=== PATIENT | male | born 1955 | race Caucasian/White ===

== ENCOUNTER 2024-04-10 20:41 | Inpatient (IN) | payer MEDICARE ==
[2024-04-10 21:26] LABS: Basophils # (A) 0.1 k/uL (0-0.2); Basophils % (A) 1 %; Eosinophils # (A) 0.2 k/uL (0-0.7); Eosinophils % (A) 2 %; HCT 44.4 % (39.0-53.0); HGB 14.4 gm/dL (13.0-17.5); Lymphocytes # (A) 2.4 k/uL (1.0-4.8); Lymphocytes % (A) 22 %; MCH 27.7 pg (25.0-35.0); MCHC 32.5 g/dL (31.0-37.0); MCV 85.1 fL (80.0-100.0); Mean Platelet Volume 9.8; Monocytes # (A) 0.6 k/uL (0-1.0); Monocytes % (A) 6 %; Neutrophils # (A) 7.6 k/uL (1.3-7.7); Neutrophils % (A) 69 %; Platelet Count 246 k/uL (150-450); RBC 5.22 m/uL (4.30-5.90); WBC 11.1 k/uL (3.8-10.6)
[2024-04-10 21:27] LABS: ALT 21 U/L (4-49); AST 21 U/L (17-59); African American GFR (CKD) >90 (>60 ml/min/1.73 sqM); Albumin 4.7 g/dL (3.5-5.0); Alkaline Phosphatase 104 U/L (38-126); Anion Gap 13 mmol/L; Blood Urea Nitrogen 18 mg/dL (9-20); Calcium 9.6 mg/dL (8.4-10.2); Carbon Dioxide 26 mmol/L (22-30); Chloride 100 mmol/L (98-107); Glucose 362 mg/dL (74-99); Non-African American GFR(CKD) >90 (>60 ml/min/1.73 sqM); Potassium 4.1 mmol/L (3.5-5.1); Sodium 139 mmol/L (137-145); Total Bilirubin 0.6 mg/dL (0.2-1.3); Total Protein 8.2 g/dL (6.3-8.2)
--- NOTE | 2024-04-10 21:51 | XR ---
EXAMINATION TYPE: XR foot complete RT DATE OF EXAM: 04/10/2024 9:21 PM COMPARISON: None. CLINICAL INDICATION: Male, 68 years old with history of Wound, pain TECHNIQUE: 3 view(s) obtained. FINDINGS: No acute fracture or dislocation. No cortical erosion evident. Joint spaces are preserved. Plantar ca lcaneal heel spur is present. Patient's known wound between fourth and fifth digit on the ball of the foot and at the heel are not readily apparent on the plain films. Follow up exams can be performed 7-10 days from acute trauma for continued pain IMPRESSION: 1. No acute osseous abnormality radiographically apparent [facility] Bobbi Kay, , 04/10/2024 9:49 PM
[2024-04-10] MEDS ORDERED: CLINDAMYCIN 600 MG in DEXTROSE 5% IN WATER 50 ML IVPB PRN (23:15)
[2024-04-10] MEDS ORDERED: ONDANSETRON 4 MG/2 ML VIAL IVP PRN (23:15)
[2024-04-10] MEDS ORDERED: NALOXONE 0.4 MG/ML 1 ML VIAL IV PRN (23:15)
--- NOTE | 2024-04-10 23:18 | ED ---
Lower Extremity Injury HPI - General Chief Complaint: Extremity Injury, Lower Stated Complaint: R Leg Infection Time Seen by Provider: 04/10/24 22:40 Source: patient, old records reviewed Mode of arrival: ambulatory Limitations: no limitations - History of Present Illness Initial Comments: This is a 68-year-old male to the ER for evaluation this patient presents today for evaluation of right foot pain diabetic foot ulcer of the right foot severe pain going on for days with significant swelling of the legs seen by primary care sent to ER for IV MD Complaint: ankle injury, foot injury -: hour(s) Injury: Foot: Right, Toes: Right Place: home Severity: moderate Severity scale (1-10): 6 Worsens With: nothing Context: fall Associated Symptoms: swelling, numbness, able to partially bear weight Treatments Prior to Arrival: other (0) - Related Data Previous Rx's Medication Instructions Recorded Amoxic-Pot Clav 875-125Mg 1 tab PO Q12HR 10 Days #20 tab 04/16/24 [Augmentin 875-125] Ciprofloxacin HCl [Cipro] 500 mg PO Q12HR 10 Days #20 tab 04/16/24 Insulin Detemir [Levemir Flexpen] 15 units SQ DAILY 30 Days #1 pen 04/16/24 Nicotine 14Mg/24Hr Patch [Habitrol] 1 patch TRANSDERM DAILY 30 Days 04/16/24 #30 patch amLODIPine [Norvasc] 5 mg PO DAILY 30 Days #30 tab 04/16/24 Allergies Allergy/AdvReac Type Severity Reaction Status Date / Time No Known Allergies Allergy Verified 04/11/24 11:32 Review of Systems ROS Statement: Those systems with pertinent positive or pertinent negative responses have been documented in the HPI. ROS Other: All systems not noted in ROS Statement are negative. Past Medical History Past Medical History: Diabetes Mellitus History of Any Multi-Drug Resistant Organisms: None Reported Past Surgical History: No Surgical Hx Reported Past Psychological History: No Psychological Hx Reported Smoking Status: Current every day smoker Past Alcohol Use History: None Reported Past Drug Use History: None Reported General Exam Limitations: no limitations General appearance: alert, in no apparent distress Head exam: Present: atraumatic, normocephalic, normal inspection Eye exam: Present: normal appearance, PERRL, EOMI. Absent: scleral icterus, conjunctival injection, periorbital swelling ENT exam: Present: normal exam, mucous membranes moist Neck exam: Present: normal inspection. Absent: tenderness, meningismus, lymphadenopathy Respiratory exam: Present: normal lung sounds bilaterally. Absent: respiratory distress, wheezes, rales, rhonchi, stridor Cardiovascular Exam: Present: regular rate, normal rhythm, normal heart sounds. Absent: systolic murmur, diastolic murmur, rubs, gallop, clicks GI/Abdominal exam: Present: soft, normal bowel sounds. Absent: distended, tend erness, guarding, rebound, rigid Extremities exam: Present: normal inspection, full ROM, normal capillary refill. Absent: tenderness, pedal edema, joint swelling, calf tenderness Back exam: Present: normal inspection Neurological exam: Present: alert, oriented X3, CN II-XII intact Psychiatric exam: Present: normal affect, normal mood Skin exam: Present: warm, dry, intact, normal color. Absent: rash Course Vital Signs 04/10/24 04/10/24 20:52 22:54 Temperature 98.8 F 98.2 F Pulse Rate 82 90 Respiratory 16 18 Rate Blood Pressure 171/83 175/83 O2 Sat by Pulse 97 97 Oximetry - Reevaluation(s) Reevaluation #1: 04/11/24 00:57 Medical records reviewed Reevaluation #2: 04/11/24 00:57 Patient symptoms unchanged Reevaluation #3: 04/11/24 00:57 Patient informed of results and questions answered Reevaluation #4: Was pt. sent in by a medical professional or institution (, PA, ART THERAPY SPECIALIST, urgent care, hospital, or [place] [facility] facility...) When possible be specific @ -no Did you speak to anyone other than the patient for history (EMS, parent, family, police, friend...)? What history was obtained from this source @ -no Did you review nursing and triage notes (agree or disagree)? Why? @ -agree Are old charts reviewed (outside hosp., previous admission, EMS record, old EKG, old radiological studies, urgent care reports/EKG's, [place] health [facility] facility records)? Report findings @ -yes Differential Diagnosis (chest pain, altered mental status, abdominal pain women, abdominal pain men, vaginal bleeding, weakness, fever, dyspnea, syncope, headache, dizziness, GI bleed, back pain, seizure, CVA, palpatations, mental health, musculoskeletal)? @ -prior EKG interpreted by me (3pts min.). @ -no X-rays interpreted by me (1pt min.). @ -yes negative for acute disease CT interpreted by me (1pt min.). @ -no U/S interpreted by me (1pt. min.). @ -no What testing was considered but not performed or refused? (CT, X-rays, U/S, labs)? Why? @ -none What meds were considered but not given or refused? Why? @ -none Did you discuss the management of the patient with other professionals (professionals i.e. DrRanjan, PA, ART THERAPY SPECIALIST, lab, RT, psych nurse, renal social worker, planning assistant, teacher, public service officer, case briefer)? Give summary @ -no Was smoking cessation discussed for >3mins.? @ -no Was critical care preformed (if so, how long)? @ -no Were there social determinants of health that impacted care today? How? (Homelessness, low income, unemployed, alcoholism, drug addiction, transportation, low edu. Level, literacy, decrease access to med. care, prison, rehab)? @ -none Was there de-escalation of care discussed even if they declined (Discuss DNR or withdrawal of care, Hospice)? DNR status @ -no What co-morbidities impacted this encounter? (DM, HTN, Smoking, COPD, CAD, Cancer, CVA, ARF, Chemo, Hep., AIDS, mental health diagnosis, sleep apnea, morbid obesity)? @ -none Was patient admitted / discharged? Hospital course, mention meds given and route, prescriptions, significant lab abnormalities, going to OR and other pertinent info. @ - 68 male to the ER for evaluation patient positive for evaluation of significant right foot ulcer and cellulitis Admitted Undiagnosed new problem with uncertain prognosis? @ -no Drug Therapy requiring intensive monitoring for toxicity (Heparin, Nitro, Insulin, Cardizem)? @ -no Were any procedures done? @ -no Diagnosis/symptom? @ -Foot ulcer with cellulitis Acute, or Chronic, or Acute on Chronic? @ -Acute Uncomplicated (without systemic symptoms) or Complicated (systemic symptoms)? @ -Complicated Side effects of treatment? @ -no Exacerbation, Progression, or Severe Exacerbation? @ -exacerbation Poses a threat to life or bodily function? How? (Chest pain, USA, AR, pneumonia, PE, COPD, DKA, ARF, appy, cholecystitis, CVA, Diverticulitis, Homicidal, Suicidal, threat to staff... and all critical care pts) @ -no - Consultations Consultation #1: Spoke with admitting physicians who agreed to admit this patient Medical Decision Making - Medical Decision Making 68 male to the ER for evaluation patient positive for evaluation of significant right foot ulcer and cellulitis - Lab Data Result diagrams: 04/16/24 04:15 04/16/24 04:15 Lab Results 04/10/24 04/10/24 04/11/24 Range/Units 21:09 21:09 06:38 WBC 11.1 H (3.8-10.6) k/uL RBC 5.22 (4.30-5.90) m/uL Hgb 14.4 (13.0-17.5) gm/dL Hct 44.4 (39.0-53.0) % MCV 85.1 (80.0-100.0) fL MCH 27.7 (25.0-35.0) pg MCHC 32.5 (31.0-37.0) g/dL RDW 13.0 (11.5-15.5) % Plt Count 246 (150-450) k/uL MPV 9.8 Neutrophils % 69 % Lymphocytes % 22 % Monocytes % 6 % Eosinophils % 2 % Basophils % 1 % Neutrophils # 7.6 (1.3-7.7) k/uL Lymphocytes # 2.4 (1.0-4.8) k/uL Monocytes # 0.6 (0-1.0) k/uL Eosinophils # 0.2 (0-0.7) k/uL Basophils # 0.1 (0-0.2) k/uL ESR (0-20) mm/Hr Sodium 139 (137-145) mmol/L Potassium 4.1 (3.5-5.1) mmol/L Chloride 100 (98-107) mmol/L Carbon Dioxide 26 (22-30) mmol/L Anion Gap 13 mmol/L BUN 18 (9-20) mg/dL Creatinine 0.78 (0.66-1.25) mg/dL Est GFR (CKD-EPI)AfAm >90 (>60 ml/min/1.73 sqM) Est GFR (CKD-EPI)NonAf >90 (>60 ml/min/1.73 sqM) Glucose 362 H (74-99) mg/dL POC Glucose (mg/dL) 221 H (70-110) mg/dL POC Glu Garden Worker ID Amanda Cortez [address] Glu mg/dL mg/dL Hemoglobin A1c (<=6.0) % Calcium 9.6 (8.4-10.2) mg/dL Phosphorus (2.5-4.5) mg/dL Magnesium (1.6-2.3) mg/dL Total Bilirubin 0.6 (0.2-1.3) mg/dL AST 21 (17-59) U/L ALT 21 (4-49) U/L Alkaline Phosphatase 104 (38-126) U/L C-Reactive Protein (<1.0) mg/dL Total Protein 8.2 (6.3-8.2) g/dL Albumin 4.7 (3.5-5.0) g/dL 04/11/24 04/11/24 04/11/24 Range/Units 06:48 06:48 11:53 WBC 10.8 H (3.8-10.6) k/uL RBC 4.97 (4.30-5.90) m/uL Hgb 13.2 (13.0-17.5) gm/dL Hct 41.7 (39.0-53.0) % MCV 83.8 (80.0-100.0) fL MCH 26.6 (25.0-35.0) pg MCHC 31.7 (31.0-37.0) g/dL RDW 12.8 (11.5-15.5) % Plt Count 234 (150-450) k/uL MPV 9.4 Neutrophils % 70 % Lymphocytes % 20 % Monocytes % 6 % Eosinophils % 2 % Basophils % 1 % Neutrophils # 7.5 (1.3-7.7) k/uL Lymphocytes # 2.2 (1.0-4.8) k/uL Monocytes # 0.7 (0-1.0) k/uL Eosinophils # 0.2 (0-0.7) k/uL Basophils # 0.1 (0-0.2) k/uL ESR 52 H (0-20) mm/Hr Sodium 137 (137-145) mmol/L Potassium 3.9 (3.5-5.1) mmol/L Chloride 102 (98-107) mmol/L Carbon Dioxide 25 (22-30) mmol/L Anion Gap 10 mmol/L BUN 12 (9-20) mg/dL Creatinine 0.64 L (0.66-1.25) mg/dL Est GFR (CKD-EPI)AfAm >90 (>60 ml/min/1.73 sqM) Est GFR (CKD-EPI)NonAf >90 (>60 ml/min/1.73 sqM) Glucose 213 H (74-99) mg/dL POC Glucose (mg/dL) 202 H (70-110) mg/dL POC Glu Garden Worker ID Rhys Cornejo [address] Glu mg/dL mg/dL Hemoglobin A1c (<=6.0) % Calcium 9.1 (8.4-10.2) mg/dL Phosphorus 3.6 (2.5-4.5) mg/dL Magnesium 1.6 (1.6-2.3) mg/dL Total Bilirubin 0.4 (0.2-1.3) mg/dL AST 18 (17-59) U/L ALT 17 (4-49) U/L Alkaline Phosphatase 90 (38-126) U/L C-Reactive Protein 1.6 H (<1.0) mg/dL Total Protein 6.8 (6.3-8.2) g/dL Albumin 3.9 (3.5-5.0) g/dL 04/11/24 04/11/24 04/12/24 Range/Units 16:32 19:33 05:56 WBC (3.8-10.6) k/uL RBC (4.30-5.90) m/uL Hgb (13.0-17.5) gm/dL Hct (39.0-53.0) % MCV (80.0-100.0) fL MCH (25.0-35.0) pg MCHC (31.0-37.0) g/dL RDW (11.5-15.5) % Plt Count (150-450) k/uL MPV Neutrophils % % Lymphocytes % % Monocytes % % Eosinophils % % Basophils % % Neutrophils # (1.3-7.7) k/uL Lymphocytes # (1.0-4.8) k/uL Monocytes # (0-1.0) k/uL Eosinophils # (0-0.7) k/uL Basophils # (0-0.2) k/uL ESR (0-20) mm/Hr Sodium (137-145) mmol/L Potassium (3.5-5.1) mmol/L Chloride (98-107) mmol/L Carbon Dioxide (22-30) mmol/L Anion Gap mmol/L BUN (9-20) mg/dL Creatinine (0.66-1.25) mg/dL Est GFR (CKD-EPI)AfAm (>60 ml/min/1.73 sqM) Est GFR (CKD-EPI)NonAf (>60 ml/min/1.73 sqM) Glucose (74-99) mg/dL POC Glucose (mg/dL) 220 H 180 H 178 H (70-110) mg/dL POC Glu Garden Worker ID Rhys Harley [address] Glu mg/dL mg/dL Hemoglobin A1c (<=6.0) % Calcium (8.4-10.2) mg/dL Phosphorus (2.5-4.5) mg/dL Magnesium (1.6-2.3) mg/dL Total Bilirubin (0.2-1.3) mg/dL AST (17-59) U/L ALT (4-49) U/L Alkaline Phosphatase (38-126) U/L C-Reactive Protein (<1.0) mg/dL Total Protein (6.3-8.2) g/dL Albumin (3.5-5.0) g/dL 04/12/24 04/12/24 04/12/24 Range/Units 07:12 07:12 07:12 WBC 11.0 H (3.8-10.6) k/uL RBC 4.88 (4.30-5.90) m/uL Hgb 13.4 (13.0-17.5) gm/dL Hct 40.9 (39.0-53.0) % MCV 83.8 (80.0-100.0) fL MCH 27.4 (25.0-35.0) pg MCHC 32.7 (31.0-37.0) g/dL RDW 12.6 (11.5-15.5) % Plt Count 207 (150-450) k/uL MPV 9.5 Neutrophils % % Lymphocytes % % Monocytes % % Eosinophils % % Basophils % % Neutrophils # (1.3-7.7) k/uL Lymphocytes # (1.0-4.8) k/uL Monocytes # (0-1.0) k/uL Eosinophils # (0-0.7) k/uL Basophils # (0-0.2) k/uL ESR (0-20) mm/Hr Sodium 136 L (137-145) mmol/L Potassium 4.1 (3.5-5.1) mmol/L Chloride 103 (98-107) mmol/L Carbon Dioxide 24 (22-30) mmol/L Anion Gap 9 mmol/L BUN 10 (9-20) mg/dL Creatinine 0.64 L (0.66-1.25) mg/dL Est GFR (CKD-EPI)AfAm >90 (>60 ml/min/1.73 sqM) Est GFR (CKD-EPI)NonAf >90 (>60 ml/min/1.73 sqM) Glucose 179 H (74-99) mg/dL POC Glucose (mg/dL) (70-110) mg/dL POC Glu Garden Worker ID Estimated Ave Glu mg/dL 338 mg/dL Hemoglobin A1c 13.4 H (<=6.0) % Calcium 8.9 (8.4-10.2) mg/dL Phosphorus (2.5-4.5) mg/dL Magnesium 1.7 (1.6-2.3) mg/dL Total Bilirubin 0.7 (0.2-1.3) mg/dL AST 17 (17-59) U/L ALT 17 (4-49) U/L Alkaline Phosphatase 85 (38-126) U/L C-Reactive Protein (<1.0) mg/dL Total Protein 6.5 (6.3-8.2) g/dL Albumin 3.6 (3.5-5.0) g/dL - Radiology Data Radiology results: report reviewed (X-ray right foot negative for acute dz), image reviewed Disposition Clinical Impression: Right foot ulcer, Cellulitis of right foot, Diabetic foot ulcer Disposition: ADMITTED IP TO THIS [facility] Condition: Stable Is patient prescribed a controlled substance at d/c from ED?: No Time of Disposition: 23:00
[2024-04-10] MEDS: HYDROmorphone 1 MG/ML 1 ML SYRINGE IVP STA (23:42)
[2024-04-10] MEDS: SODIUM CHLORIDE 0.9% 1,000 ML IV SCH (23:42)
[2024-04-11] MEDS: CLINDAMYCIN 600 MG in DEXTROSE 5% IN WATER 50 ML IVPB SCH (00:32)
[2024-04-11] MEDS ORDERED: DEXTROSE 50% SYRINGE 50 ML IVP PRN ×2 (01:04)
[2024-04-11] MEDS ORDERED: VANCOMYCIN IV PER PHARMACY 1 EACH MISC MISCELLANE PRN (06:17)
--- NOTE | 2024-04-11 06:20 | P.HPIM ---
History of Present Illness H&P Date: 04/11/24 Patient is a 68-year-old male with past medical history significant for uwh-gznyisr-miztlzgty diabetes mellitus presenting to the emergency department today for right foot erythema and wound between his fourth and fifth toes. He states that he is unsure of how he got the wound but that he has tried putting something like [place] on it as well as covering only with his socks with no relief. He states that he went to his primary care provider yesterday and they advised he come to the ER. He states that this has been going on for 3-4 weeks, never happened before. He states that a few months ago he dropped a heavy object on his left foot and thinks he has been putting more pressure on his rig ht foot to compensate for some pain and believes this may be where the wound started. He reports moderate pain, minimal swelling, erythema, and tenderness to palpation. He denies decreased sensation in his feet. He denies fever/chills, nausea/vomiting, lower extremity edema Initial vitals: BP 171/83, UT 82 bpm, RR 16, 97% on room air, 98.8F Initial labs: WBC 11.1, hemoglobin 14.4, platelets 246, sodium 139, potassium 4.1, chloride 100, BUN 18, creatinine 0.78, glucose 362 Initial foot x-ray: No acute osseous abnormality radiographically apparent ED documentation reviewed. Given ceftriaxone 2 g IVPB x 1, clindamycin 600 mg IVPB x 1 Review of Systems Pertinent positives and negatives as discussed in HPI, a complete review of systems was performed and all other systems are negative. Past Medical History Past Medical History: Diabetes Mellitus History of Any Multi-Drug Resistant Organisms: None Reported Past Surgical History: No Surgical Hx Reported Past Psychological History: No Psychological Hx Reported Smoking Status: Current every day smoker Past Alcohol Use History: None Reported Past Drug Use History: None Reported Medications and Allergies Allergies Allergy/AdvReac Type Severity Reaction Status Date / Time No Known Allergies Allergy Verified 04/10/24 20:55 Physical Exam Vitals: Vital Signs Temp Pulse Resp BP Pulse Ox 04/10/24 22:54 98.2 F 90 18 175/83 97 04/10/24 20:52 98.8 F 82 16 171/83 97 Intake and Output 04/10/24 04/10/24 04/11/24 14:59 22:59 06:59 Other: Weight 81.647 kg Vital signs reviewed General: Nontoxic, no distress, appears stated age, well-appearing Derm: Warm, dry, intact, no cyanosis Head: Atraumatic, normocephalic, symmetric Eyes: EOMI, anicteric sclera, PERRL Ears: Normal appearing, no external lesions, hearing intact Nose: Normal appearing, no external lesions Mouth: No lip lesion, mucus membranes moist, no tonsilar hypertrophy or exudate Neck: Supple, without lesions, trachea midline Cardiovascular: S1-S2 regular, no murmur, no pedal edema Lungs: CTA bilateral, no wheezes, no rhonchi, no rales, no accessory muscle use Abdominal: Soft, non-tender to palpation, bowel sounds present Extremities: Muscle strength 5/5 in all extremities, radial pulses 2+ bilateral, posterior tibial pulses 2+ bilateral; erythema on dorsal surface, no calor, dry wound between fourth and fifth toes, extremely tender to palpation Neuro: Alert, oriented x 4, gross neurological examination did not reveal any focal deficits. Cranial nerves II to XII grossly intact. Psych: Appropriate affect and mood Results CBC & Chem 7: 04/10/24 21:09 04/10/24 21:09 Labs: Abnormal Lab Results - Last 24 Hours (Table) 04/10/24 04/10/24 Range/Units 21:09 21:09 WBC 11.1 H (3.8-10.6) k/uL Glucose 362 H (74-99) mg/dL Thrombosis Risk Factor Assmnt - Choose All That Apply Each Factor Represents 1 point: Obesity (BMI >25) Each Risk Factor Represents 2 Points: Age 61-74 years Thrombosis Risk Factor Assessment Total Risk Factor Score: 3 Thrombosis Risk Factor Assessment Level: Moderate Risk Assessment and Plan Assessment: Patient is a 68-year-old male with past medical history significant for vwr-cgqhizp-kcbgrmdih diabetes mellitus admitted for cellulitis and ulcer of the right foot. Plan: Active #. Right fourth and fifth toe ulcer #. Cellulitis of the right foot #. Leukocytosis, secondary to above s/p one time dose of rocephine and clinda in the ED start on vancomycin dosing by pharma Consult wound management Pending blood cultures Monitor CBC Monitor CMP Consult infectious disease and foot miter operator check ESR and CRP foot x-ray: No acute osseous abnormality radiographically apparent #. Hyperglycemia #. Mou-bsbarqc-huqadtxxq diabetes mellitus Accu-Cheks ACHS Insulin sliding scale Monitor for hypoglycemia hypertension not currently on medication start lisinopril 5 mg po daily DVT prophylaxis: Lovenox 40 mg subcutaneous daily GI prophylaxis: None indicated at this time The patient is admitted with an anticipated less than 2 midnight stay for evaluation of cellulitis and ulcer of the right foot. CODE STATUS: Full Code Anticipated discharge place: Pending clinical course I have seen and evaluated the patient today. I Discussed the case with the resident and agree with the resident's findings I edited the assessment and plan as necessary as documented in the resident's note.
[2024-04-11 06:40] LABS: Glucose,Whole Blood 221 mg/dL (70-110)
[2024-04-11] MEDS: INSULIN ASPART (NovoLOG) 100 UNIT/ML VIAL SQ SCH (06:48)
[2024-04-11 07:26] LABS: Basophils # (A) 0.1 k/uL (0-0.2); Basophils % (A) 1 %; Eosinophils # (A) 0.2 k/uL (0-0.7); Eosinophils % (A) 2 %; HCT 41.7 % (39.0-53.0); HGB 13.2 gm/dL (13.0-17.5); Lymphocytes # (A) 2.2 k/uL (1.0-4.8); Lymphocytes % (A) 20 %; MCH 26.6 pg (25.0-35.0); MCHC 31.7 g/dL (31.0-37.0); MCV 83.8 fL (80.0-100.0); Mean Platelet Volume 9.4; Monocytes # (A) 0.7 k/uL (0-1.0); Monocytes % (A) 6 %; Neutrophils # (A) 7.5 k/uL (1.3-7.7); Neutrophils % (A) 70 %; Platelet Count 234 k/uL (150-450); RBC 4.97 m/uL (4.30-5.90); RDW 12.8 % (11.5-15.5); WBC 10.8 k/uL (3.8-10.6)
[2024-04-11 07:41] LABS: ALT 17 U/L (4-49); AST 18 U/L (17-59); African American GFR (CKD) >90 (>60 ml/min/1.73 sqM); Albumin 3.9 g/dL (3.5-5.0); Alkaline Phosphatase 90 U/L (38-126); Anion Gap 10 mmol/L; Blood Urea Nitrogen 12 mg/dL (9-20); C Reactive Protein 1.6 mg/dL (<1.0); Calcium 9.1 mg/dL (8.4-10.2); Carbon Dioxide 25 mmol/L (22-30); Chloride 102 mmol/L (98-107); Glucose 213 mg/dL (74-99); Magnesium 1.6 mg/dL (1.6-2.3); Non-African American GFR(CKD) >90 (>60 ml/min/1.73 sqM); Phosphorus 3.6 mg/dL (2.5-4.5); Potassium 3.9 mmol/L (3.5-5.1); Sodium 137 mmol/L (137-145); Total Bilirubin 0.4 mg/dL (0.2-1.3); Total Protein 6.8 g/dL (6.3-8.2)
[2024-04-11] MEDS: VANCOMYCIN 1,500 MG in SODIUM CHLORIDE 0.9% 500 ML 500 ML IVPB SCH (08:14)
[2024-04-11] MEDS: lisinopriL 5 MG TAB PO SCH (08:15)
[2024-04-11] MEDS: MORPHINE SULFATE 4 MG/ML SYRINGE IV PRN (08:27)
[2024-04-11] MEDS: HYDROcodone/APAP 5-325MG 1 EACH TAB PO PRN (10:26)
[2024-04-11 11:06] LABS: Erythrocyte Sedimentation Rate 52 mm/Hr (0-20)
[2024-04-11 11:56] LABS: Glucose,Whole Blood 202 mg/dL (70-110)
[2024-04-11] MEDS: AMPICILLIN-SULBACTAM 3 GM in SODIUM CHLORIDE 0.9% 100 ML IVPB SCH (13:32)
[2024-04-11 16:33] LABS: Glucose,Whole Blood 220 mg/dL (70-110)
[2024-04-11] MEDS ORDERED: ACETAMINOPHEN TAB 325 MG TAB PO PRN (17:27)
--- NOTE | 2024-04-11 17:33 | P.PN ---
Subjective Progress Note Date: 04/11/24 Hospital course: Patient is a very pleasant 68-year-old male with a past medical history of gfa-cqungox-qpmyzckbo diabetes mellitus nicotine dependence. He presented to the emergency department on 04/10/2024 secondary to evaluation of right foot pain and infection. Upon arrival to our facility, patient underwent evaluation in the emergency department. Vital signs upon arrival show blood pressure 171/83, heart rate 82, respiratory rate 16, temp 98.8 F, and SpO2 of 97% on room air. X-ray right foot completed negative for acute osseous abnormality. Labs completed and reviewed. CBC showing leukocytosis with WBC count of 11.1. BMP s howing hyperglycemia with glucose of 362. Liver profile unremarkable. Patient started on broad-spectrum antibiotics and admitted under our services with consult to infectious disease for infected diabetic wound. Physical exam: Vital signs reviewed and stable. General: Nontoxic, no distress and appears stated age. Derm: Skin warm and dry, normal coloration for ethnicity. Patient with open wound between fourth and fifth digit of right foot with surrounding erythema and edema. Head: Atraumatic, normocephalic and symmetric. Eyes: EOM's intact, no lid lag, and anicteric sclera Mouth: no lip lesions, mucus membranes moist Cardiovascular: regular rate and rhythm with normal S1S2, no murmur, positive posterior tibial pulses bilaterally, and cap refill < 2 seconds. Lungs: Respirations even, regular, and unlabored on room air. Lungs CTA bilaterally, no rhonchi, no rales, no wheezing, and no accessory muscle usage. Abdominal: soft, nontender to palpation, no guarding, no appreciable organomegaly Ext: ROM intact. No gross muscle atrophy, no edema, no contractures Neuro: Speech clear, face symmetrical and CN II-XII grossly intact with no noted focal neuro deficits Psych: Alert and oriented to person, place, time, and situation. Appropriate and pleasant affect. Assessment and Plan of Care: Infected diabetic wound right foot with surrounding cellulitis Type 2 diabetes mellitus with hyperglycemia -Infectious disease consulted, discussed plan of care with Dr. Lundberg. Rocephin to be discontinued and patient started on Unasyn in addition to vancomycin. -Continue IV antibiotics with vancomycin 1500 mg every 12 hours and Unasyn 3 g every 6 hours with close monitoring of renal function and vancomycin trough for any signs of vancomycin associated renal toxicity. -Follow-up on blood culture and wound culture. -ESR elevated at 52 and CRP of 1.6. -Symptomatic care and pain management with Tylenol 650 mg every 6 hours as needed for mild pain, [place] 5-325 mg tablets every 4 hours as needed for moderate pain, and morphine 4 mg IVP every 4 hours as needed for severe pain -Patient placed on glycemic protocol with NovoLog sliding scale. -Follow-up on hemoglobin A1c results. Hypertension -Patient has maintained persistent hypertension 160s to 170s systolic since admission. Will start patient on amlodipine 5 mg daily. Hypomagnesemia -Magnesium 1.6. Orders placed for magnesium sulfate 2 g IVPB x 1 dose. Will continue to monitor for improvement/resolution of hypomagnesemia with repeat a.m. labs. Nicotine dependence -Recommend smoking cessation. Orders placed for nicotine patch 14 mg daily. Data and imaging reviewed: -Vital signs reviewed. Blood pressure 165/74, heart rate 83, respiratory rate 17, temp 98.0 F, and SpO2 of 97% on room air. -Morning labs reviewed. CBC showing slight improvement of leukocytosis with WBC count of 10.8. ESR elevated at 52. BMP showing hyperglycemia with blood glucose of 213. Calcium 9.1. Magnesium slightly low at 1.6. Liver profile unremarkable. CRP elevated at 1.6. CODE STATUS: Full code DVT prophylaxis: Lovenox Discussed with: Patient, RN, and infectious disease Anticipated discharge date: Pending clinical course Anticipated discharge place: Home Patient was seen independently by Nurse Pracitioner. This document was prepared using [employer] dictation software. Please allow for errors in floor layer tile, while rare they do occur. Tru Osorio NP rendered care for this patient independently, reviewed the findings and plan as documented in the note above and agree with plan. I did not physically speak with or examine the patient on this date. Objective - Vital Signs Vital signs: Vital Signs Temp 98.2 F 04/11/24 00:29 Pulse 73 04/11/24 00:29 Resp 17 04/11/24 00:29 BP 161/73 04/11/24 00:29 Pulse Ox 96 04/11/24 00:29 FiO2 Intake & Output 04/10/24 04/11/24 04/11/24 18:59 06:59 18:59 Intake Total 540 Output Total 150 Balance 390 Weight 81.647 kg Intake: Oral 540 Output: Urine 150 Other: # Voids 1 - Labs CBC & Chem 7: 04/11/24 06:48 04/11/24 06:48 Labs: Abnormal Lab Results - Last 24 Hours (Table) 04/10/24 04/10/24 04/11/24 Range/Units 21:09 21:09 06:38 WBC 11.1 H (3.8-10.6) k/uL Creatinine (0.66-1.25) mg/dL Glucose 362 H (74-99) mg/dL POC Glucose (mg/dL) 221 H (70-110) mg/dL C-Reactive Protein (<1.0) mg/dL 04/11/24 04/11/24 Range/Units 06:48 06:48 WBC 10.8 H (3.8-10.6) k/uL Creatinine 0.64 L (0.66-1.25) mg/dL Glucose 213 H (74-99) mg/dL POC Glucose (mg/dL) (70-110) mg/dL C-Reactive Protein 1.6 H (<1.0) mg/dL
[2024-04-11] MEDS: amLODIPine 5 MG TAB PO STA (17:49)
[2024-04-11] MEDS: MAGNESIUM SULFATE-D5W PMX 1 GM in DEXTROSE/WATER 1 100ML.BAG IVPB SCH (17:49)
[2024-04-11] MEDS: NICOTINE 14MG/24HR PATCH TRANSDERM SCH (17:50)
[2024-04-11 19:34] LABS: Glucose,Whole Blood 180 mg/dL (70-110)
[2024-04-12 05:58] LABS: Glucose,Whole Blood 178 mg/dL (70-110)
[2024-04-12 07:34] LABS: HCT 40.9 % (39.0-53.0); HGB 13.4 gm/dL (13.0-17.5); MCH 27.4 pg (25.0-35.0); MCHC 32.7 g/dL (31.0-37.0); MCV 83.8 fL (80.0-100.0); Mean Platelet Volume 9.5; Platelet Count 207 k/uL (150-450); RBC 4.88 m/uL (4.30-5.90); RDW 12.6 % (11.5-15.5)
[2024-04-12 08:02] LABS: ALT 17 U/L (4-49); AST 17 U/L (17-59); African American GFR (CKD) >90 (>60 ml/min/1.73 sqM); Albumin 3.6 g/dL (3.5-5.0); Alkaline Phosphatase 85 U/L (38-126); Anion Gap 9 mmol/L; Blood Urea Nitrogen 10 mg/dL (9-20); Calcium 8.9 mg/dL (8.4-10.2); Carbon Dioxide 24 mmol/L (22-30); Chloride 103 mmol/L (98-107); Glucose 179 mg/dL (74-99); Magnesium 1.7 mg/dL (1.6-2.3); Non-African American GFR(CKD) >90 (>60 ml/min/1.73 sqM); Potassium 4.1 mmol/L (3.5-5.1); Sodium 136 mmol/L (137-145); Total Bilirubin 0.7 mg/dL (0.2-1.3); Total Protein 6.5 g/dL (6.3-8.2)
--- NOTE | 2024-04-12 08:12 | P.CONS ---
History of Present Illness - Reason for Consult Consult date: 04/11/24 Right foot cellulitis Requesting physician: Stacie Nuno - Chief Complaint Right foot pain swelling redness x days - History of Present Illness Patient is a 68-year-old male with a past medical history significant for diabetes mellitus and hypertension current everyday smoker presenting to the hospital for evaluation of right foot pain swelling and redness that the pain has been going on for the last few days patient also developed a wound between his right fourth and fifth toe for the same duration patient not very clear how it started mention he went to see his primary care physician who sent the patient to the hospital patient mention he did drop heavy object on his left foot and has been favoring his left foot and using more weight on the right foot adequately to the bottom patient describing the pain to be sharp moderate intense without radiation with associated swelling redness denies any possibly drainage denies high-grade fever or any chills with the symptoms the patient has been evaluated on presentation to the hospital patient was afebrile no fever have recorded subsequently patient was not tachycardic hypotensive or hypoxic and no need for supplemental oxygen patient did have a white count of 11.1 creatinine 0.64 electrolyte has been normal liver enzymes are normal blood cultures obtained which are currently pending patient did have x-ray of the foot no acute bony abnormality patient was started on vancomycin infectious disease was consulted for further management of antibiotic therapy Review of Systems Positive point and negatives has been mentioned in the HPI, complete review of systems was performed and all other systems are negative Past Medical History Past Medical History: Diabetes Mellitus, Hypertension History of Any Multi-Drug Resistant Organisms: None Reported Past Surgical History: No Surgical Hx Reported Past Psychological History: No Psychological Hx Reported Smoking Status: Current every day smoker Past Alcohol Use History: None Reported Past Drug Use History: None Reported Medications and Allergies Home Medications Medication Instructions Recorded Confirmed Type Unable To Assess [Unable to Assess] 04/11/24 04/11/24 History Allergies Allergy/AdvReac Type Severity Reaction Status Date / Time No Known Allergies Allergy Verified 04/11/24 11:32 Physical Exam Vitals: Vital Signs Temp Pulse Pulse Resp BP BP Pulse Ox 04/11/24 07:00 98.0 F 83 17 165/74 97 04/11/24 00:29 98.2 F 73 17 161/73 96 04/10/24 22:54 98.2 F 90 18 175/83 97 04/10/24 20:52 98.8 F 82 16 171/83 97 Intake and Output 04/10/24 04/11/24 04/11/24 22:59 06:59 14:59 Intake Total 540 Output Total 150 Balance 390 Intake: Oral 540 Output: Urine 150 Other: # Voids 1 Weight 81.647 kg GENERAL DESCRIPTION: Elderly male up in bed, no distress. No tachypnea or ac cessory muscle of respiration use. HEENT: Shows Pallor , no scleral icterus. Oral mucous membrane is dry. No pharyngeal erythema or thrush NECK: Trachea central, no thyromegaly. LUNGS: Unlabored breathing. Clear to auscultation anteriorly. No wheeze or crackle. HEART: S1, S2, regular rate and rhythm. No loud murmur ABDOMEN: Soft, no tenderness , guarding or rigidity, no organomegaly EXTREMITIES: Right foot did have a wound between the fourth and the fifth toe with associated swelling redness and warmth on the dorsum aspect of the right foot SKIN: No rash, no masses palpable. NEUROLOGICAL: The patient is awake, alert, oriented x3, mood and affect normal. Results CBC & Chem 7: 04/12/24 07:12 04/12/24 07:12 Labs: Abnormal Lab Results - Last 24 Hours (Table) 04/10/24 04/10/24 04/11/24 Range/Units 21:09 21:09 06:38 WBC 11.1 H (3.8-10.6) k/uL Creatinine (0.66-1.25) mg/dL Glucose 362 H (74-99) mg/dL POC Glucose (mg/dL) 221 H (70-110) mg/dL C-Reactive Protein (<1.0) mg/dL 04/11/24 04/11/24 Range/Units 06:48 06:48 WBC 10.8 H (3.8-10.6) k/uL Creatinine 0.64 L (0.66-1.25) mg/dL Glucose 213 H (74-99) mg/dL POC Glucose (mg/dL) (70-110) mg/dL C-Reactive Protein 1.6 H (<1.0) mg/dL Assessment and Plan (1) Diabetic foot infection Current Visit: Yes Status: Acute Code(s): E11.628 - TYPE 2 DIABETES MELLITUS WITH OTHER SKIN COMPLICATIONS; L08.9 - LOCAL INFECTION OF THE SKIN AND SUBCUTANEOUS TISSUE, UNSP SNOMED Code(s): 644157288 (2) Cellulitis of right foot Current Visit: Yes Status: Acute Code(s): L03.115 - CELLULITIS OF RIGHT LOWER LIMB SNOMED Code(s): 40214340184525176 (3) Diabetic foot ulcer Current Visit: Yes Status: Acute Code(s): E11.621 - TYPE 2 DIABETES MELLITUS WITH FOOT ULCER; L97.509 - NON-PRESSURE CHRONIC ULCER OTH PRT UNSP FOOT W UNSP SEVERITY SNOMED Code(s): 321013205 Plan: 1patient was in the hospital increasing pain swelling redness to the right foot with evidence of cellulitis source is likely wound between the right fourth and fifth toe and no need to cover for the polymicrobial joy associated with diabetic foot infection. 2we will discontinue clindamycin and start the patient Unasyn 3 g every 6 hours and continue with vancomycin while waiting for the culture to finalize Question concern answered We will follow on clinical condition and cultures to further adjust medication if needed Thank you for this consultation we will follow the patient along with you Dictation was produced using Yapmo dictation software. please excuse any grammatical, word or spelling errors. Time with Patient: Greater than 30
[2024-04-12] MEDS: amLODIPine 5 MG TAB PO SCH (08:22)
[2024-04-12] MEDS: ENOXAPARIN 40 MG/0.4 ML SYRINGE SQ SCH (08:22)
[2024-04-12] MEDS: MAGNESIUM SULFATE-D5W PMX 1 GM in DEXTROSE/WATER 1 100ML.BAG IVPB SCH (09:21)
[2024-04-12] MEDS: VANCOMYCIN 1,500 MG in SODIUM CHLORIDE 0.9% 500 ML 500 ML IVPB SCH (09:22)
[2024-04-12 11:50] LABS: Glucose,Whole Blood 240 mg/dL (70-110)
--- NOTE | 2024-04-12 16:41 | P.PN ---
Subjective Progress Note Date: 04/12/24 Hospital course: Patient is a very pleasant 68-year-old male with a past medical history of [id number] diabetes mellitus, and nicotine dependence. He presented to the emergency department on 04/10/2024 secondary to evaluation of right foot pain and infection. Upon arrival to our facility, patient underwent evaluation in the emergency department. Vital signs upon arrival show blood pressure 171/83, heart rate 82, respiratory rate 16, temp 98.8 F, and SpO2 of 97% on room air. X-ray right foot completed negative for acute osseous abnormality. Labs completed and reviewed. CBC showing leukocytosis with WBC count of 11.1. BMP showing hyperglycemia with glucose of 362. Liver profile unremarkable. Patient started on broad-spectrum antibiotics and admitted under our services with consult to infectious disease for infected diabetic wound. Blood cultures showing no growth to date. Wound culture preliminarily positive for Enterobacter aerogenes and Proteus [place]ellas. Physical exam: Patient seen and fully evaluated at bedside this morning. He reports pain remains in his right foot but does improve with current pain medication regimen. He denies having any other complaints or needs at this time. Vital signs reviewed and stable. General: Nontoxic, no distress and appears stated age. Derm: Skin warm and dry, normal coloration for ethnicity. Patient with open wound between fourth and fifth digit of right foot with surrounding erythema and edema. Head: Atraumatic, normocephalic and symmetric. Eyes: EOM's intact, no lid lag, and anicteric sclera Mouth: no lip lesions, mucus membranes moist Cardiovascular: regular rate and rhythm with normal S1S2, no murmur, positive posterior tibial pulses bilaterally, and cap refill < 2 seconds. Lungs: Respirations even, regular, and unlabored on room air. Lungs CTA bilaterally, no rhonchi, no rales, no wheezing, and no accessory muscle usage. Abdominal: soft, nontender to palpation, no guarding, no appreciable organomegaly Ext: ROM intact. No gross muscle atrophy, no edema, no contractures Neuro: Speech clear, face symmetrical and CN II-XII grossly intact with no noted focal neuro deficits Psych: Alert and oriented to person, place, time, and situation. Appropriate and pleasant affect. Assessment and Plan of Care: Infected diabetic wound right foot with surrounding cellulitis Type 2 diabetes mellitus with hyperglycemia, hemoglobin A1c 13.4%. Leukocytosis -Infectious disease following, discussed plan of care with Dr. Lundberg. -Blood cultures showing no growth to date. Wound culture preliminarily positive for Enterobacter aerogenes and Proteus [place]ellas. -Continue IV antibiotics with vancomycin 1500 mg every 12 hours and Unasyn 3 g every 6 hours with close monitoring of renal function and vancomycin trough for any signs of vancomycin associated renal toxicity. -Follow-up on blood culture and wound culture. -ESR elevated at 52 and CRP of 1.6. -Symptomatic care and pain management with Tylenol 650 mg every 6 hours as needed for mild pain, Polson 5-325 mg tablets every 4 hours as needed for moderate pain, and morphine 4 mg IVP every 4 hours as needed for severe pain -Patient placed on glycemic protocol with NovoLog sliding scale. -Follow-up on hemoglobin A1c results. Hypertension -Patient has maintained persistent hypertension 160s to 170s systolic since admission. Will start patient on amlodipine 5 mg daily. Hypomagnesemia -Magnesium 1.7. Orders placed for magnesium sulfate 2 g IVPB x 1 dose. Will continue to monitor for improvement/resolution of hypomagnesemia with repeat a.m. labs. Nicotine dependence -Recommend smoking cessation. Orders placed for nicotine patch 14 mg daily. Data and imaging reviewed: -Labs reviewed. Blood cultures showing no growth to date. Wound culture preliminarily positive for Enterobacter aerogenes and Proteus Mirabellas. Morning labs reviewed. CBC showing leukocytosis with WBC count of 11.0. BMP showing sodium 136 and glucose of 179. Hemoglobin A1c significantly elevated at 13.4%. Magnesium slightly low at 1.7 and liver profile unremarkable. -Vital signs reviewed. Blood pressure 144/71, heart rate 80, respiratory rate 17, temp 97.2 F, and SpO2 of 97% on room air. CODE STATUS: Full code DVT prophylaxis: Lovenox Discussed with: Patient, RN, and infectious disease Anticipated discharge date: Pending clinical course Anticipated discharge place: Home Patient was seen independently by Nurse Pracitioner. This document was prepared using Fluxome dictation software. Please allow for errors in highway safety engineer, while rare they do occur. Tru Osorio NP rendered care for this patient independently, reviewed the findings and plan as documented in the note above and agree with plan. I did not physically speak with or examine the patient on this date. Objective - Vital Signs Vital signs: Vital Signs Temp 97.2 F L 02/19/25 07:00 Pulse 80 04/12/24 07:00 Resp 17 04/12/24 07:00 BP 144/71 04/12/24 07:00 Pulse Ox 97 04/12/24 07:00 FiO2 Intake & Output 04/11/24 04/12/24 04/12/24 18:59 06:59 18:59 Intake Total 1450 550 Balance 1450 550 Intake: Intake, IV Titration 750 Amount Ampicillin-Sulbactam 3 gm 200 In Sodium Chloride 0.9% 100 ml @ 200 mls/hr IVPB Q6H [facility] Rx#:[id number] Vancomycin 1,500 mg In 500 Sodium Chloride 0.9% 500 ml 500 ml @ 167 mls/hr IVPB Q12H [facility] Rx#: [id number] cefTRIAXone 2 gm In 50 Sodium Chloride 0.9% 50 ml @ 100 mls/hr IVPB Q24HR [facility] Rx#:[id number] Oral 700 550 Other: # Voids 3 2 # Bowel Movements 0 0 - Labs CBC & Chem 7: 04/12/24 07:12 04/12/24 07:12 Labs: Abnormal Lab Results - Last 24 Hours (Table) 04/11/24 04/11/24 04/11/24 Range/Units 06:48 11:53 16:32 WBC (3.8-10.6) k/uL ESR 52 H (0-20) mm/Hr Sodium (137-145) mmol/L Creatinine (0.66-1.25) mg/dL Glucose (74-99) mg/dL POC Glucose (mg/dL) 202 H 220 H (70-110) mg/dL 04/11/24 04/12/24 04/12/24 Range/Units 19:33 05:56 07:12 WBC (3.8-10.6) k/uL ESR (0-20) mm/Hr Sodium 136 L (137-145) mmol/L Creatinine 0.64 L (0.66-1.25) mg/dL Glucose 179 H (74-99) mg/dL POC Glucose (mg/dL) 180 H 178 H (70-110) mg/dL 04/12/24 Range/Units 07:12 WBC 11.0 H (3.8-10.6) k/uL ESR (0-20) mm/Hr Sodium (137-145) mmol/L Creatinine (0.66-1.25) mg/dL Glucose (74-99) mg/dL POC Glucose (mg/dL) (70-110) mg/dL Microbiology - Last 24 Hours (Table) 04/11/24 16:33 Gram Stain - Preliminary Foot - Right 04/10/24 21:09 Blood Culture - Preliminary Blood
[2024-04-12 17:00] LABS: Glucose,Whole Blood 227 mg/dL (70-110)
[2024-04-12 20:19] LABS: Glucose,Whole Blood 213 mg/dL (70-110)
[2024-04-13] MEDS: CEFEPIME 2 GM in SODIUM CHLORIDE 0.9% 100 ML IVPB SCH (00:24)
[2024-04-13 04:25] LABS: HCT 35.7 % (39.0-53.0); HGB 11.7 gm/dL (13.0-17.5); MCH 27.9 pg (25.0-35.0); MCHC 32.7 g/dL (31.0-37.0); MCV 85.3 fL (80.0-100.0); Mean Platelet Volume 9.1; Platelet Count 199 k/uL (150-450); RBC 4.18 m/uL (4.30-5.90); RDW 12.4 % (11.5-15.5); WBC 10.3 k/uL (3.8-10.6)
[2024-04-13 04:47] LABS: African American GFR (CKD) >90 (>60 ml/min/1.73 sqM); Anion Gap 7 mmol/L; Blood Urea Nitrogen 13 mg/dL (9-20); Calcium 8.6 mg/dL (8.4-10.2); Carbon Dioxide 24 mmol/L (22-30); Chloride 106 mmol/L (98-107); Glucose 155 mg/dL (74-99); Magnesium 1.8 mg/dL (1.6-2.3); Non-African American GFR(CKD) >90 (>60 ml/min/1.73 sqM); Potassium 4.4 mmol/L (3.5-5.1); Sodium 137 mmol/L (137-145)
[2024-04-13 06:04] LABS: Glucose,Whole Blood 186 mg/dL (70-110)
[2024-04-13 07:19] LABS: Glucose,Whole Blood 196 mg/dL (70-110)
--- NOTE | 2024-04-13 08:03 | P.PN ---
Subjective Progress Note Date: 04/12/24 Principal diagnosis: Reason for follow-up is right diabetic foot ulcer and cellulitis Patient is a 68-year-old male with a past medical history significant for diabetes mellitus and hypertension current everyday smoker presenting to the hospital for evaluation of right foot pain swelling and redness, patient be diagnosed with right diabetic foot ulcer and cellulitis prompted this consultation. On today's evaluation that is 04/12/2024,the patient denies any fever or any chills, patient is breathing comfortably on room air, the patient denies chest pain shortness of breath and no significant cough, patient denies abdominal pain, no nausea vomiting or diarrhea. Pain to the right foot slightly decreased in intensity. Patient white count is 11,000 creatinine 0.64 culture growing mostly gram- negative Objective - Vital Signs Vital signs: Vital Signs Temp 98.1 F 04/12/24 19:39 Pulse 80 04/12/24 19:39 Resp 18 04/12/24 19:39 BP 147/67 04/12/24 19:39 Pulse Ox 98 04/12/24 19:39 FiO2 Intake & Output 04/12/24 04/12/24 04/13/24 06:59 18:59 06:59 Intake Total 550 1400 Balance 550 1400 Weight 81.647 kg Intake: Intake, IV Titration 800 Amount Ampicillin-Sulbactam 3 gm 100 In Sodium Chloride 0.9% 100 ml @ 200 mls/hr IVPB Q6H [facility] Rx#:[id number] Magnesium Sulfate-D5w Pmx 200 1 gm In Dextrose/Water 1 100ml.bag @ 100 mls/hr IVPB Q1H [facility] Rx#: [id number] Vancomycin 1,500 mg In 500 Sodium Chloride 0.9% 500 ml 500 ml @ 167 mls/hr IVPB Q12H [facility] Rx#: [id number] Oral 550 600 Other: # Voids 2 2 # Bowel Movements 0 0 - Exam GENERAL DESCRIPTION: An elderly male lying in bed in no distress RESPIRATORY SYSTEM: Unlabored breathing , decreased breath sounds at bases HEART: S1 S2 regular rate and rhythm , ABDOMEN: Soft , no tenderness EXTREMITIES: Right foot swelling redness slightly decreased - Labs CBC & Chem 7: 04/13/24 02:48 04/13/24 02:48 Labs: Abnormal Lab Results - Last 24 Hours (Table) 04/12/24 04/12/24 04/12/24 Range/Units 05:56 07:12 07:12 WBC (3.8-10.6) k/uL Sodium 136 L (137-145) mmol/L Creatinine 0.64 L (0.66-1.25) mg/dL Glucose 179 H (74-99) mg/dL POC Glucose (mg/dL) 178 H (70-110) mg/dL Hemoglobin A1c 13.4 H (<=6.0) % 04/12/24 04/12/24 04/12/24 Range/Units 07:12 11:48 16:58 WBC 11.0 H (3.8-10.6) k/uL Sodium (137-145) mmol/L Creatinine (0.66-1.25) mg/dL Glucose (74-99) mg/dL POC Glucose (mg/dL) 240 H 227 H (70-110) mg/dL Hemoglobin A1c (<=6.0) % 04/12/24 Range/Units 20:17 WBC (3.8-10.6) k/uL Sodium (137-145) mmol/L Creatinine (0.66-1.25) mg/dL Glucose (74-99) mg/dL POC Glucose (mg/dL) 213 H (70-110) mg/dL Hemoglobin A1c (<=6.0) % Microbiology - Last 24 Hours (Table) 04/11/24 16:33 Gram Stain - Preliminary Foot - Right Wound Culture - Preliminary Enterobacter aerogenes Proteus mirabilis 04/10/24 21:09 Blood Culture - Preliminary Blood Assessment and Plan (1) Diabetic foot infection Current Visit: Yes Status: Acute Code(s): E11.628 - TYPE 2 DIABETES MELLITUS WITH OTHER SKIN COMPLICATIONS; L08.9 - LOCAL INFECTION OF THE SKIN AND SUBCUTANEOUS TISSUE, UNSP SNOMED Code(s): 522551273 (2) Cellulitis of right foot Current Visit: Yes Status: Acute Code(s): L03.115 - CELLULITIS OF RIGHT LOWER LIMB SNOMED Code(s): 95734290174048234 (3) Diabetic foot ulcer Current Visit: Yes Status: Acute Code(s): E11.621 - TYPE 2 DIABETES MELLITUS WITH FOOT ULCER; L97.509 - NON-PRESSURE CHRONIC ULCER OTH PRT UNSP FOOT W UNSP SEVERITY SNOMED Code(s): 442786018 Plan: 1patient was in the hospital increasing pain swelling redness to the right foot with evidence of cellulitis source is likely wound between the right fourth and fifth toe and no need to cover for the polymicrobial joy associated with diabetic foot infection. 2patient white count is slightly up today and cultures are growing predominantly gram-negative we will discontinue Unasyn and start the patient on cefepime while waiting for the sensitivity to finalize if no gram-positive vancomycin will be discontinued in a.m. Dictation was produced using Xirrus dictation software. please excuse any grammatical, word or spelling errors. Time with Patient: Less than 30
[2024-04-13] MEDS: VANCOMYCIN TROUGH DUE 1 EACH MISC MISCELLANE ONE (09:52)
[2024-04-13 11:48] LABS: Glucose,Whole Blood 223 mg/dL (70-110)
--- NOTE | 2024-04-13 13:07 | P.PN ---
Subjective Progress Note Date: 04/13/24 Principal diagnosis: Reason for follow-up is right diabetic foot ulcer and cellulitis Patient is a 68-year-old male with a past medical history significant for diabetes mellitus and hypertension current everyday smoker presenting to the hospital for evaluation of right foot pain swelling and redness, patient be diagnosed with right diabetic foot ulcer and cellulitis prompted this consultation. On today's evaluation that is 04/13/2024,the patient remains to be afebrile, patient is on room air not requiring supplemental oxygen and denies any shortness of breath no chest pain or cough.Patient denies having any nausea or vomiting, no abdominal pain and no diarrhea, pain to the right foot has decreased in intensity. Patient white count normalized to 10.3, creatinine 0.70 Vanco trough low at 11.3 culture with Enterobacter and Proteus Objective - Vital Signs Vital signs: Vital Signs Temp 98.6 F 04/13/24 07:18 Pulse 69 04/13/24 07:18 Resp 16 04/13/24 07:18 BP 155/80 04/13/24 07:18 Pulse Ox 96 04/13/24 07:18 FiO2 Intake & Output 04/12/24 04/13/24 04/13/24 18:59 06:59 18:59 Intake Total 1400 250 Balance 1400 250 Weight 81.647 kg Intake: Intake, IV Titration 800 Amount Ampicillin-Sulbactam 3 gm 100 In Sodium Chloride 0.9% 100 ml @ 200 mls/hr IVPB Q6H [facility] Rx#:[id number] Magnesium Sulfate-D5w Pmx 200 1 gm In Dextrose/Water 1 100ml.bag @ 100 mls/hr IVPB Q1H [facility] Rx#: [id number] Vancomycin 1,500 mg In 500 Sodium Chloride 0.9% 500 ml 500 ml @ 167 mls/hr IVPB Q12H [facility] Rx#: [id number] Oral 600 250 Other: # Voids 2 2 # Bowel Movements 0 0 - Exam GENERAL DESCRIPTION: An elderly male lying in bed in no distress RESPIRATORY SYSTEM: Unlabored breathing , decreased breath sounds at bases HEART: S1 S2 regular rate and rhythm , ABDOMEN: Soft , no tenderness EXTREMITIES: Right foot swelling redness slightly decreased - Labs CBC & Chem 7: 04/13/24 02:48 04/13/24 02:48 Labs: Abnormal Lab Results - Last 24 Hours (Table) 04/12/24 04/12/24 04/13/24 Range/Units 16:58 20:17 02:48 RBC 4.18 L (4.30-5.90) m/uL Hgb 11.7 L (13.0-17.5) gm/dL Hct 35.7 L (39.0-53.0) % Glucose (74-99) mg/dL POC Glucose (mg/dL) 227 H 213 H (70-110) mg/dL 04/13/24 04/13/24 04/13/24 Range/Units 02:48 06:03 07:18 RBC (4.30-5.90) m/uL Hgb (13.0-17.5) gm/dL Hct (39.0-53.0) % Glucose 155 H (74-99) mg/dL POC Glucose (mg/dL) 186 H 196 H (70-110) mg/dL 04/13/24 Range/Units 11:46 RBC (4.30-5.90) m/uL Hgb (13.0-17.5) gm/dL Hct (39.0-53.0) % Glucose (74-99) mg/dL POC Glucose (mg/dL) 223 H (70-110) mg/dL Microbiology - Last 24 Hours (Table) 04/11/24 16:33 Gram Stain - Preliminary Foot - Right Wound Culture - Preliminary Enterobacter aerogenes Proteus mirabilis 04/10/24 21:09 Blood Culture - Preliminary Blood Assessment and Plan (1) Diabetic foot infection Current Visit: Yes Status: Acute Code(s): E11.628 - TYPE 2 DIABETES MELLITUS WITH OTHER SKIN COMPLICATIONS; L08.9 - LOCAL INFECTION OF THE SKIN AND SUBCUTANEOUS TISSUE, UNSP SNOMED Code(s): 661944468 (2) Cellulitis of right foot Current Visit: Yes Status: Acute Code(s): L03.115 - CELLULITIS OF RIGHT LOWER LIMB SNOMED Code(s): 19869556465287012 (3) Diabetic foot ulcer Current Visit: Yes Status: Acute Code(s): E11.621 - TYPE 2 DIABETES MELLITUS WITH FOOT ULCER; L97.509 - NON-PRESSURE CHRONIC ULCER OTH PRT UNSP FOOT W UNSP SEVERITY SNOMED Code(s): 316526699 Plan: 1patient was in the hospital increasing pain swelling redness to the right foot with evidence of cellulitis source is likely wound between the right fourth and fifth toe and no need to cover for the polymicrobial joy associated with diabetic foot infection. 2patient white count has normalized culture growing Enterobacter and Proteus with sensitivities pending to continue cefepime, vancomycin has been discontinued discharge antibiotic on the basis of final culture discussed with SUPERVISOR DRAWING for admitting team Dictation was produced using [employer] dictation software. please excuse any grammatical, word or spelling errors. Time with Patient: Less than 30
[2024-04-13 14:54] VITALS: BMI 25.8
--- NOTE | 2024-04-13 15:20 | P.PN ---
Subjective Progress Note Date: 04/13/24 Hospital course: Patient is a very pleasant 68-year-old male with a past medical history of cec-holwfqo-[id number] diabetes mellitus, and nicotine dependence. He presented to the emergency department on 04/10/2024 secondary to evaluation of right foot pain and infection. Upon arrival to our facility, patient underwent evaluation in the emergency department. Vital signs upon arrival show blood pressure 171/83, heart rate 82, respiratory rate 16, temp 98.8 F, and SpO2 of 97% on room air. X-ray right foot completed negative for acute osseous abnormality. Labs completed and reviewed. CBC showing leukocytosis with WBC count of 11.1. BMP showing hyperglycemia with glucose of 362. Liver profile unremarkable. Patient started on broad-spectrum antibiotics and admitted under our services with consult to infectious disease for infected diabetic wound. Blood cultures showing no growth to date. Wound culture preliminarily positive for Enterobacter aerogenes and Proteus Mirabellas. Physical exam: Patient seen and fully evaluated at bedside this morning. He reports pain remains in his right foot unchanged from yesterday. Reports pain medication does help but does not completely resolved. He denies wanting to increase or change dosing of pain medication at this time. Vital signs reviewed and stable. General: Nontoxic, no distress and appears stated age. Derm: Skin warm and dry, normal coloration for ethnicity. Patient with open wound between fourth and fifth digit of right foot with surrounding erythema and edema. Head: Atraumatic, normocephalic and symmetric. Eyes: EOM's intact, no lid lag, and anicteric sclera Mouth: no lip lesions, mucus membranes moist Cardiovascular: regular rate and rhythm with normal S1S2, no murmur, positive posterior tibial pulses bilaterally, and cap refill < 2 seconds. Lungs: Respirations even, regular, and unlabored on room air. Lungs CTA bilaterally, no rhonchi, no rales, no wheezing, and no accessory muscle usage. Abdominal: soft, nontender to palpation, no guarding, no appreciable organomegaly Ext: ROM intact. No gross muscle atrophy, no edema, no contractures Neuro: Speech clear, face symmetrical and CN II-XII grossly intact with no noted focal neuro deficits Psych: Alert and oriented to person, place, time, and situation. Appropriate and pleasant affect. Assessment and Plan of Care: Infected diabetic wound right foot with surrounding cellulitis Poorly controlled type 2 diabetes mellitus with hyperglycemia, hemoglobin A1c 13.4%. Leukocytosis -Infectious disease following, discussed plan of care with Dr. Lundberg stated discontinuing Unasyn and vancomycin and placed patient on cefepime 2 g every 8 hours pending final culture and sensitivity report. -Blood cultures showing no growth to date. Wound culture preliminarily positive for Enterobacter aerogenes and Proteus Mirabellas. -Continue IV antibiotics with cefepime 2 g every 8 hours -Follow-up on blood culture and wound culture. -ESR elevated at 52 and CRP of 1.6. -Symptomatic care and pain management with Tylenol 650 mg every 6 hours as needed for mild pain, [place] 5-325 mg tablets every 4 hours as needed for moderate pain, and morphine 4 mg IVP every 4 hours as needed for severe pain -Patient placed on glycemic protocol with NovoLog sliding scale. -Hemoglobin A1c results 13.4%. Hypertension -Monitor vital signs and continue daily medication regimen with amlodipine 5 mg daily. Hypomagnesemia -Resolved. Morning magnesium 1.8. Nicotine dependence -Recommend smoking cessation. Continue nicotine patch 14 mg daily. Data and imaging reviewed: -Labs reviewed. Blood cultures showing no growth to date. Wound culture preliminarily positive for Enterobacter aerogenes and Proteus Mirabellas. Morning labs reviewed. CBC showing leukocytosis with WBC count of 11.0. BMP showing sodium 136 and glucose of 179. Hemoglobin A1c significantly elevated at 13.4%. Magnesium slightly low at 1.7 and liver profile unremarkable. -Vital signs reviewed. Blood pressure 155/80, heart rate 69, respiratory rate 16, temp 98.6 F, and SpO2 of 96% on room air. CODE STATUS: Full code DVT prophylaxis: Lovenox Discussed with: Patient, RN, and infectious disease physician Anticipated discharge date: Discharge is pending final culture and sensitivity report Anticipated discharge place: Home Patient was seen independently by Nurse Pracitioner. This document was prepared using [employer] dictation software. Please allow for errors in milling supervisor, while rare they do occur. Tru Osorio NP rendered care for this patient independently, reviewed the findings and plan as documented in the note above and agree with plan. I did not physically speak with or examine the patient on this date. Objective - Vital Signs Vital signs: Vital Signs Temp 98.6 F 04/13/24 07:18 Pulse 69 04/13/24 07:18 Resp 16 04/13/24 07:18 BP 155/80 04/13/24 07:18 Pulse Ox 96 04/13/24 07:18 FiO2 Intake & Output 04/12/24 04/13/24 04/13/24 18:59 06:59 18:59 Intake Total 1400 250 Balance 1400 250 Weight 81.647 kg Intake: Intake, IV Titration 800 Amount Ampicillin-Sulbactam 3 gm 100 In Sodium Chloride 0.9% 100 ml @ 200 mls/hr IVPB Q6H [facility] Rx#:[id number] Magnesium Sulfate-D5w Pmx 200 1 gm In Dextrose/Water 1 100ml.bag @ 100 mls/hr IVPB Q1H [facility] Rx#: [id number] Vancomycin 1,500 mg In 500 Sodium Chloride 0.9% 500 ml 500 ml @ 167 mls/hr IVPB Q12H [facility]OT[facility] Rx#: [id number] Oral 600 250 Other: # Voids 2 2 # Bowel Movements 0 0 - Labs CBC & Chem 7: 04/13/24 02:48 04/13/24 02:48 Labs: Abnormal Lab Results - Last 24 Hours (Table) 04/12/24 04/12/24 04/12/24 Range/Units 07:12 11:48 16:58 RBC (4.30-5.90) m/uL Hgb (13.0-17.5) gm/dL Hct (39.0-53.0) % Glucose (74-99) mg/dL POC Glucose (mg/dL) 240 H 227 H (70-110) mg/dL Hemoglobin A1c 13.4 H (<=6.0) % 04/12/24 04/13/24 04/13/24 Range/Units 20:17 02:48 02:48 RBC 4.18 L (4.30-5.90) m/uL Hgb 11.7 L (13.0-17.5) gm/dL Hct 35.7 L (39.0-53.0) % Glucose 155 H (74-99) mg/dL POC Glucose (mg/dL) 213 H (70-110) mg/dL Hemoglobin A1c (<=6.0) % 04/13/24 04/13/24 Range/Units 06:03 07:18 RBC (4.30-5.90) m/uL Hgb (13.0-17.5) gm/dL Hct (39.0-53.0) % Glucose (74-99) mg/dL POC Glucose (mg/dL) 186 H 196 H (70-110) mg/dL Hemoglobin A1c (<=6.0) % Microbiology - Last 24 Hours (Table) 04/10/24 21:09 Blood Culture - Preliminary Blood 04/11/24 16:33 Gram Stain - Preliminary Foot - Right Wound Culture - Preliminary Enterobacter aerogenes Proteus mirabilis
[2024-04-13 16:50] LABS: Glucose,Whole Blood 181 mg/dL (70-110)
[2024-04-13 20:40] LABS: Glucose,Whole Blood 185 mg/dL (70-110)
[2024-04-14 04:06] LABS: HCT 38.5 % (39.0-53.0); HGB 12.7 gm/dL (13.0-17.5); MCH 27.6 pg (25.0-35.0); MCHC 33.1 g/dL (31.0-37.0); MCV 83.4 fL (80.0-100.0); Mean Platelet Volume 9.4; Platelet Count 212 k/uL (150-450); RBC 4.62 m/uL (4.30-5.90); RDW 12.7 % (11.5-15.5)
[2024-04-14 04:25] LABS: African American GFR (CKD) >90 (>60 ml/min/1.73 sqM); Anion Gap 7 mmol/L; Blood Urea Nitrogen 18 mg/dL (9-20); Calcium 9.2 mg/dL (8.4-10.2); Carbon Dioxide 25 mmol/L (22-30); Chloride 100 mmol/L (98-107); Glucose 171 mg/dL (74-99); Magnesium 1.7 mg/dL (1.6-2.3); Non-African American GFR(CKD) >90 (>60 ml/min/1.73 sqM); Potassium 4.3 mmol/L (3.5-5.1); Sodium 132 mmol/L (137-145)
[2024-04-14 06:04] LABS: Glucose,Whole Blood 170 mg/dL (70-110)
[2024-04-14] MEDS: LIDOCAINE 1% INJ 10MG/ML (20 ML MDV) SQ ONE (10:23)
[2024-04-14] MEDS: MAGNESIUM SULFATE-D5W PMX 1 GM in DEXTROSE/WATER 1 100ML.BAG IVPB SCH (10:23)
[2024-04-14 11:11] LABS: Glucose,Whole Blood 183 mg/dL (70-110)
--- NOTE | 2024-04-14 11:40 | P.PN ---
Subjective Progress Note Date: 04/14/24 Principal diagnosis: Torre grade 3 ulceration right foot Patient is a 68-year-old male with a past medical history significant for diabetes mellitus and hypertension current everyday smoker presenting to the hospital for evaluation of right foot pain swelling and redness, patient be diagnosed with right diabetic foot ulcer and cellulitis prompted this consultation. Patient states is present wound for 4 weeks. Patient states treatment has been patient of [facility] which has not helped. He states continued to get grade present in the emergency and was admitted to observation. Patient is currently being seen by infectious disease for infection from this ulcer. Objective - Vital Signs Vital signs: Vital Signs Temp 99.0 F 04/14/24 07:08 Pulse 82 04/14/24 10:57 Resp 17 04/14/24 10:57 BP 147/79 04/14/24 07:08 Pulse Ox 97 04/14/24 07:08 FiO2 Intake & Output 04/13/24 04/14/24 04/14/24 18:59 06:59 18:59 Intake Total 960 Balance 960 Weight 81.647 kg Intake: Oral 960 Other: # Voids 3 4 - Cardiovascular Details: Patient has patent pedal pulses with the posterior tibial pulse 2/4 bilateral dorsalis pedis pulse 1/4 bilateral extremities are cool to cool bilateral there is no digital hair no apparent atrophy of the soft tissue secondary to vascular compromise - Integumentary Integumentary Comment(s): Patient has a full-thickness ulceration encompassing the right fourth interdigital space. This ulceration involves the lateral surface of the fourth digit medial surface of the fifth digit. The ulcer measures approximately 4 cm x 1-1/2 cm with a depth of 0.3 cm. There is no exposed bone the depth of the ulceration is into the subcutaneous tissue there is no exposed tenderness or neurovascular structures same there is no undermining or tunneling noted there is necrotic tissue marginally and centrally. Patient has localized erythema edema circumferentially about the fourth and fifth digit extending into the lateral aspect dorsally of the right foot. Review of microbiology shows enteric coccus - Neurologic Neurologic Comment(s): Patient has loss of protective sensation bilateral with diminished vibratory 2 point tactile sensation bilateral - Musculoskeletal Musculoskeletal Comment(s): Review of radiographs show no apparent involvement of the osseous structures. All inverters everters plantar flexors dorsiflexors intact symmetric bilateral r chapin of motion ankle joint subtalar joint midtarsal joint metatarsal phalangeal joint normal symmetrical bilateral - Labs CBC & Chem 7: 04/14/24 03:51 04/14/24 03:51 Labs: Abnormal Lab Results - Last 24 Hours (Table) 04/13/24 04/13/24 04/13/24 Range/Units 11:46 16:49 20:39 WBC (3.8-10.6) k/uL Hgb (13.0-17.5) gm/dL Hct (39.0-53.0) % Sodium (137-145) mmol/L Glucose (74-99) mg/dL POC Glucose (mg/dL) 223 H 181 H 185 H (70-110) mg/dL 04/14/24 04/14/24 04/14/24 Range/Units 03:51 03:51 06:02 WBC 12.0 H (3.8-10.6) k/uL Hgb 12.7 L (13.0-17.5) gm/dL Hct 38.5 L (39.0-53.0) % Sodium 132 L (137-145) mmol/L Glucose 171 H (74-99) mg/dL POC Glucose (mg/dL) 170 H (70-110) mg/dL 04/14/24 Range/Units 11:09 WBC (3.8-10.6) k/uL Hgb (13.0-17.5) gm/dL Hct (39.0-53.0) % Sodium (137-145) mmol/L Glucose (74-99) mg/dL POC Glucose (mg/dL) 183 H (70-110) mg/dL Microbiology - Last 24 Hours (Table) 04/11/24 16:33 Gram Stain - Preliminary Foot - Right Wound Culture - Preliminary Enterobacter aerogenes Proteus mirabilis 04/10/24 21:09 Blood Culture - Preliminary Blood Assessment and Plan Assessment: Torre grade 3 ulceration right foot with ascending cellulitis Plan: Exam discussed patient findings and treatment. We discussed with patient need to debride this wound surgically in order to remove any necrotic tissue to help treat the infection and also to start advanced wound care. We discussed with patient complications prognosis risk" of debridement we will proceed with this intervention. After debridement of this wound will apply medical honey and keep the wound dry as it is interdigital and more than likely started with a tinea pedis type infection. We discussed this with patient. Will have patient use a surgical shoe which we ordered for ambulation we will continue with the IV antibiotics. Once patient's discharge patient is to be seen in the wound care center. Patient has an appointment scheduled for the wound care center next Wednesday if discharged on 04/21/2024 at 8:00 in the morning.
--- NOTE | 2024-04-14 11:45 | P.PCN ---
Date of Procedure: 04/14/24 Preoperative Diagnosis: Torre grade 3 ulceration right foot Postoperative Diagnosis: Torre grade 3 ulceration right foot Procedure(s) Performed: Surgical debridement of the Torre grade 3 ulcer right foot Anesthesia: none Disk Recoater #1: Cruz Doll Disk Recoater #2: Stated None Estimated Blood Loss (ml): 3 IV fluids (ml): 0 Pathology: none sent Condition: stable Disposition: observation Indications for Procedure: Infected Torre grade 3 ulcer right foot Operative Findings: Consistent with clinical findings Description of Procedure: Using a sterile surgical 15 blade we removed devitalized necrotic tissue marginally and centrally from the infected ulcer surgically in order to restore good granular bed throughout. After debridement we lavaged the area copiously with sterile saline in order to remove any necrotic particulate matter the preoperative measurements of this ulceration was 2.5 cm x 4.0 cm x 0.3 cm postoperatively 2.5 cm x 4.0 cm x 0.3 cm. After debridement the wound was infected and there is denominational of granulation tissue throughout the wound. Patient bleeding was less than 3 mL of blood loss throughout the procedure. After debridement the wound was lavaged with sterile saline and a dry sterile dressing was applied with medical honey. Patient was stable and will follow.
--- NOTE | 2024-04-14 12:55 | P.PN ---
Subjective Progress Note Date: 04/14/24 Principal diagnosis: Reason for follow-up is right diabetic foot ulcer and cellulitis Patient is a 68-year-old male with a past medical history significant for diabetes mellitus and hypertension current everyday smoker presenting to the hospital for evaluation of right foot pain swelling and redness, patient be diagnosed with right diabetic foot ulcer and cellulitis prompted this consultation. On today's evaluation that is 04/14/2024, the patient continues to be afebrile, the patient is on room air and breathing comfortably, the Pt denies having any chest pain or cough, the patient denies having any abdominal pain no vomiting or any diarrhea, patient did have a bedside debridement of his wound by podiatry. Patient white count is 12,000, creatinine 0.68 cultures with Enterobacter and Proteus sensitivity on Enterobacter is still pending Objective - Vital Signs Vital signs: Vital Signs Temp 99.0 F 04/14/24 07:08 Pulse 82 04/14/24 07:08 Resp 17 04/14/24 07:08 BP 147/79 04/14/24 07:08 Pulse Ox 97 04/14/24 07:08 FiO2 Intake & Output 04/13/24 04/14/24 04/14/24 18:59 06:59 18:59 Intake Total 960 Balance 960 Weight 81.647 kg Intake: Oral 960 Other: # Voids 3 4 - Exam GENERAL DESCRIPTION: An elderly male lying in bed in no distress RESPIRATORY SYSTEM: Unlabored breathing , decreased breath sounds at bases HEART: S1 S2 regular rate and rhythm , ABDOMEN: Soft , no tenderness EXTREMITIES: Right foot just dressed by podiatry after debridement - Labs CBC & Chem 7: 04/14/24 03:51 04/14/24 03:51 Labs: Abnormal Lab Results - Last 24 Hours (Table) 04/13/24 04/13/24 04/13/24 Range/Units 11:46 16:49 20:39 WBC (3.8-10.6) k/uL Hgb (13.0-17.5) gm/dL Hct (39.0-53.0) % Sodium (137-145) mmol/L Glucose (74-99) mg/dL POC Glucose (mg/dL) 223 H 181 H 185 H (70-110) mg/dL 04/14/24 04/14/24 04/14/24 Range/Units 03:51 03:51 06:02 WBC 12.0 H (3.8-10.6) k/uL Hgb 12.7 L (13.0-17.5) gm/dL Hct 38.5 L (39.0-53.0) % Sodium 132 L (137-145) mmol/L Glucose 171 H (74-99) mg/dL POC Glucose (mg/dL) 170 H (70-110) mg/dL Microbiology - Last 24 Hours (Table) 04/11/24 16:33 Gram Stain - Preliminary Foot - Right Wound Culture - Preliminary Enterobacter aerogenes Proteus mirabilis 04/10/24 21:09 Blood Culture - Preliminary Blood Assessment and Plan (1) Diabetic foot infection Current Visit: Yes Status: Acute Code(s): E11.628 - TYPE 2 DIABETES MELLITUS WITH OTHER SKIN COMPLICATIONS; L08.9 - LOCAL INFECTION OF THE SKIN AND SUBCUTANEOUS TISSUE, UNSP SNOMED Code(s): 631073080 (2) Cellulitis of right foot Current Visit: Yes Status: Acute Code(s): L03.115 - CELLULITIS OF RIGHT LOWER LIMB SNOMED Code(s): 53084880953660770 (3) Diabetic foot ulcer Current Visit: Yes Status: Acute Code(s): E11.621 - TYPE 2 DIABETES MELLITUS WITH FOOT ULCER; L97.509 - NON-PRESSURE CHRONIC ULCER OTH PRT UNSP FOOT W UNSP SEVERITY SNOMED Code(s): 167000461 Plan: 1patient was in the hospital increasing pain swelling redness to the right foot with evidence of cellulitis source is likely wound between the right fourth and fifth toe and no need to cover for the polymicrobial joy associated with diabetic foot infection. 2patient white count slightly up today, local culture growing Enterobacter and Proteus with sensitivities pending on Enterobacter nursing staff to call the micro lab to get the results on the sensitivity so we can determine his discharge antibiotic for now continue with the cefepime Dictation was produced using [employer] dictation software. please excuse any grammatical, word or spelling errors. Time with Patient: Less than 30
--- NOTE | 2024-04-14 15:29 | P.PN ---
Subjective Progress Note Date: 04/14/24 Hospital course: Patient is a very pleasant 68-year-old male with a past medical history of tkq-tkqatcw-entgsiyzs diabetes mellitus, and nicotine dependence. He presented to the emergency department on 04/10/2024 secondary to evaluation of right foot pain and infection. Upon arrival to our facility, patient underwent evaluation in the emergency department. Vital signs upon arrival show blood pressure 171/83, heart rate 82, respiratory rate 16, temp 98.8 F, and SpO2 of 97% on room air. X-ray right foot completed negative for acute osseous abnormality. Labs completed and reviewed. CBC showing leukocytosis with WBC count of 11.1. BMP showing hyperglycemia with glucose of 362. Liver profile unremarkable. Patient started on broad-spectrum antibiotics and admitted under our services with consult to infectious disease for infected diabetic wound. Blood cultures showing no growth to date. Wound culture preliminarily positive for Enterobacter aerogenes and Proteus Mirabellas. Physical exam: Patient seen and fully evaluated at bedside this morning. He reports pain remains in his right foot remains and he is expressing a bit of anxiety over plans for debridement of wound. Vital signs reviewed and stable. General: Nontoxic, no distress and appears stated age. Derm: Skin warm and dry, normal coloration for ethnicity. Patient with open wound between fourth and fifth digit of right foot with surrounding erythema, edema improved Head: Atraumatic, normocephalic and symmetric. Eyes: EOM's intact, no lid lag, and anicteric sclera Mouth: no lip lesions, mucus membranes moist Cardiovascular: regular rate and rhythm with normal S1S2, no murmur, positive posterior tibial pulses bilaterally, and cap refill < 2 seconds. Lungs: Respirations even, regular, and unlabored on room air. Lungs CTA bilaterally, no rhonchi, no rales, no wheezing, and no accessory muscle usage. Abdominal: soft, nontender to palpation, no guarding, no appreciable organomegaly Ext: ROM intact. No gross muscle atrophy, no edema, no contractures Neuro: Speech clear, face symmetrical and CN II-XII grossly intact with no noted focal neuro deficits Psych: Alert and oriented to person, place, time, and situation. Appropriate and pleasant affect. Assessment and Plan of Care: Infected diabetic wound right foot with surrounding cellulitis Poorly controlled type 2 diabetes mellitus with hyperglycemia, hemoglobin A1c 13.4%. Leukocytosis -Infectious disease following, discussed plan of care with Dr. Lundberg stated discontinuing Unasyn and vancomycin and placed patient on cefepime 2 g every 8 hours pending final culture and sensitivity report. -Podiatry following, planning to do debridement later today. -Blood cultures showing no growth to date. Wound culture preliminarily positive for Enterobacter aerogenes and Proteus Mirabellas. -Continue IV antibiotics with cefepime 2 g every 8 hours -ESR elevated at 52 and CRP of 1.6. -Symptomatic care and pain management with Tylenol 650 mg every 6 hours as needed for mild pain, [place] 5-325 mg tablets every 4 hours as needed for moderate pain, and morphine 4 mg IVP every 4 hours as needed for severe pain -Patient placed on glycemic protocol with NovoLog sliding scale. -Hemoglobin A1c results 13.4%. Hypertension -Monitor vital signs and continue daily medication regimen with amlodipine 5 mg daily. Hypomagnesemia -Magnesium 1.7. Orders placed for magnesium sulfate 2 g IVPB x 1 dose. Will continue to monitor with repeat a.m. labs. Nicotine dependence -Recommend smoking cessation. Continue nicotine patch 14 mg daily. Data and imaging reviewed: -Labs reviewed. Blood cultures showing no growth to date. Wound culture preliminarily positive for Enterobacter aerogenes and Proteus Mirabellas. Morning labs reviewed. CBC showing leukocytosis with WBC count of 12.0 and normocytic anemia with hemoglobin of 12.7. BMP showing hyponatremia with sodium of 132, glucose 171, and magnesium 1.7. Orders placed for magnesium supplement 2 g magnesium sulfate IVPB x 1 dose. -Vital signs reviewed. Blood pressure 147/79, heart rate 82, respiratory rate 17, temp 99.0 F, and SpO2 of 97% on room air. CODE STATUS: Full code DVT prophylaxis: Lovenox Discussed with: Patient, RN, and infectious disease physician Anticipated discharge date: Discharge is pending final culture and sensitivity report Anticipated discharge place: Home Patient was seen independently by Nurse Pracitioner. This document was prepared using [employer] dictation software. Please allow for errors in manager career, while rare they do occur. Tru Osorio NP rendered care for this patient independently, reviewed the findings and plan as documented in the note above and agree with plan. I did not physically speak with or examine the patient on this date. Objective - Vital Signs Vital signs: Vital Signs Temp 99.0 F 04/14/24 07:08 Pulse 82 04/14/24 07:08 Resp 17 04/14/24 07:08 BP 147/79 04/14/24 07:08 Pulse Ox 97 04/14/24 07:08 FiO2 Intake & Output 04/13/24 04/14/24 04/14/24 18:59 06:59 18:59 Intake Total 960 Balance 960 Weight 81.647 kg Intake: Oral 960 Other: # Voids 3 4 - Labs CBC & Chem 7: 04/14/24 03:51 04/14/24 03:51 Labs: Abnormal Lab Results - Last 24 Hours (Table) 04/13/24 04/13/24 04/13/24 Range/Units 11:46 16:49 20:39 WBC (3.8-10.6) k/uL Hgb (13.0-17.5) gm/dL Hct (39.0-53.0) % Sodium (137-145) mmol/L Glucose (74-99) mg/dL POC Glucose (mg/dL) 223 H 181 H 185 H (70-110) mg/dL 04/14/24 04/14/24 04/14/24 Range/Units 03:51 03:51 06:02 WBC 12.0 H (3.8-10.6) k/uL Hgb 12.7 L (13.0-17.5) gm/dL Hct 38.5 L (39.0-53.0) % Sodium 132 L (137-145) mmol/L Glucose 171 H (74-99) mg/dL POC Glucose (mg/dL) 170 H (70-110) mg/dL Microbiology - Last 24 Hours (Table) 04/10/24 21:09 Blood Culture - Preliminary Blood 04/11/24 16:33 Gram Stain - Preliminary Foot - Right Wound Culture - Preliminary Enterobacter aerogenes Proteus mirabilis
[2024-04-14 16:38] LABS: Glucose,Whole Blood 265 mg/dL (70-110)
[2024-04-14 19:57] LABS: Glucose,Whole Blood 229 mg/dL (70-110)
[2024-04-15 05:57] LABS: Glucose,Whole Blood 168 mg/dL (70-110)
[2024-04-15 10:02] LABS: HCT 39.1 % (39.6-50.0); HGB 12.6 g/dL (13.0-17.0); MCH 26.9 pg (27.0-32.0); MCHC 32.2 g/dL (32.0-37.0); MCV 83.5 FL (80.0-97.0); Mean Platelet Volume 11.8 FL (9.5-12.2); NRBC Per 100 WBC 0 X 10*3/uL (0.00-0.01); Platelet Count 237 X 10*3/uL (140-440); RBC 4.68 X 10*6/uL (4.40-5.60); RDW 12.5 % (11.5-14.5); WBC 11.63 X 10*3/uL (4.50-10.00)
[2024-04-15 10:14] LABS: ALT 27 U/L (10-49); AST 23 U/L (14-35); Albumin 3.6 g/dL (3.8-4.9); Albumin/Globulin Ratio 1.33 Ratio (1.60-3.17); Alkaline Phosphatase 95 U/L (41-126); BUN/Creat Ratio 31.43 Ratio (12.00-20.00); Carbon Dioxide 24.4 mmol/L (21.6-31.8); Chloride 102 mmol/L (96-109); Globulin 2.7 g/dL (1.6-3.3); Glucose 172 mg/dL (70-110); Magnesium 2.1 mg/dL (1.5-2.4); Potassium 4.6 mmol/L (3.5-5.5); Sodium 136 mmol/L (135-145); Total Bilirubin 0.4 mg/dL (0.3-1.2); Total Protein 6.3 g/dL (6.2-8.2)
[2024-04-15 11:53] LABS: Glucose,Whole Blood 267 mg/dL (70-110)
--- NOTE | 2024-04-15 12:41 | P.PN ---
Subjective Progress Note Date: 04/15/24 Principal diagnosis: Reason for follow-up is right diabetic foot ulcer and cellulitis Patient is a 68-year-old male with a past medical history significant for diabetes mellitus and hypertension current everyday smoker presenting to the hospital for evaluation of right foot pain swelling and redness, patient be diagnosed with right diabetic foot ulcer and cellulitis prompted this consultation. On today's evaluation that is 04/15/2024, patient did not have any fever and denies any chills, patient is breathing comfortably on room air, patient with no chest pain or cough patient did not have any abdominal pain nausea vomiting, pain to the right foot is currently controlled. Patient white count is 11.63, creatinine 0.7 sensitivity of Enterobacter still pending Objective - Vital Signs Vital signs: Vital Signs Temp 98.4 F 04/15/24 06:50 Pulse 66 04/15/24 06:50 Resp 17 04/15/24 06:50 BP 155/75 04/15/24 06:50 Pulse Ox 98 04/15/24 06:50 FiO2 Intake & Output 04/14/24 04/15/24 04/15/24 18:59 06:59 18:59 Intake Total 100 Balance 100 Intake: Oral 100 Other: Voiding Method Toilet # Voids 2 - Exam GENERAL DESCRIPTION: An elderly male lying in bed in no distress RESPIRATORY SYSTEM: Unlabored breathing , decreased breath sounds at bases HEART: S1 S2 regular rate and rhythm , ABDOMEN: Soft , no tenderness EXTREMITIES: Right foot just dressed by podiatry after debridement - Labs CBC & Chem 7: 04/15/24 02:54 04/15/24 02:54 Labs: Abnormal Lab Results - Last 24 Hours (Table) 04/14/24 04/14/24 04/14/24 Range/Units 11:09 16:37 19:56 WBC (4.50-10.00) X 10*3/uL Hgb (13.0-17.0) g/dL Hct (39.6-50.0) % MCH (27.0-32.0) pg BUN/Creatinine Ratio (12.00-20.00) Ratio Glucose (70-110) mg/dL POC Glucose (mg/dL) 183 H 265 H 229 H (70-110) mg/dL Albumin (3.8-4.9) g/dL Albumin/Globulin Ratio (1.60-3.17) Ratio 04/15/24 04/15/24 04/15/24 Range/Units 02:54 02:54 05:55 WBC 11.63 H (4.50-10.00) X 10*3/uL Hgb 12.6 L (13.0-17.0) g/dL Hct 39.1 L (39.6-50.0) % MCH 26.9 L (27.0-32.0) pg BUN/Creatinine Ratio 31.43 H (12.00-20.00) Ratio Glucose 172 H (70-110) mg/dL POC Glucose (mg/dL) 168 H (70-110) mg/dL Albumin 3.6 L (3.8-4.9) g/dL Albumin/Globulin Ratio 1.33 L (1.60-3.17) Ratio Microbiology - Last 24 Hours (Table) 04/11/24 16:33 Gram Stain - Preliminary Foot - Right Wound Culture - Preliminary Enterobacter aerogenes Proteus mirabilis Assessment and Plan (1) Diabetic foot infection Current Visit: Yes Status: Acute Code(s): E11.628 - TYPE 2 DIABETES MELLITUS WITH OTHER SKIN COMPLICATIONS; L08.9 - LOCAL INFECTION OF THE SKIN AND SUBCUT ANEOUS TISSUE, UNSP SNOMED Code(s): 712970667 (2) Cellulitis of right foot Current Visit: Yes Status: Acute Code(s): L03.115 - CELLULITIS OF RIGHT LOWER LIMB SNOMED Code(s): 88516454254899116 (3) Diabetic foot ulcer Current Visit: Yes Status: Acute Code(s): E11.621 - TYPE 2 DIABETES MELLITUS WITH FOOT ULCER; L97.509 - NON-PRESSURE CHRONIC ULCER OTH PRT UNSP FOOT W UNSP SEVERITY SNOMED Code(s): 442959632 Plan: 1patient was in the hospital increasing pain swelling redness to the right foot with evidence of cellulitis source is likely wound between the right fourth and fifth toe and no need to cover for the polymicrobial joy associated with diabetic foot infection. 2patient white count trending down blood culture remains to be negative still waiting on sensitivity on Enterobacter to determine discharge antibiotic for now continue with the cefepime local care per podiatry Dictation was produced using [employer] software. please excuse any grammatical, word or spelling errors. Time with Patient: Less than 30
[2024-04-15 16:49] LABS: Glucose,Whole Blood 198 mg/dL (70-110)
--- NOTE | 2024-04-15 17:55 | P.PN ---
Subjective Progress Note Date: 04/15/24 Hospital course: Patient is a very pleasant 68-year-old male with a past medical history of jev-pmodzkd-tfnlraesw diabetes mellitus, and nicotine dependence. He presented to the emergency department on 04/10/2024 secondary to evaluation of right foot pain and infection. Upon arrival to our facility, patient underwent evaluation in the emergency department. Vital signs upon arrival show blood pressure 171/83, heart rate 82, respiratory rate 16, temp 98.8 F, and SpO2 of 97% on room air. X-ray right foot completed negative for acute osseous abnormality. Labs completed and reviewed. CBC showing leukocytosis with WBC count of 11.1. BMP showing hyperglycemia with glucose of 362. Liver profile unremarkable. Patient started on broad-spectrum antibiotics and admitted under our services with consult to infectious disease for infected diabetic wound. Blood cultures showing no growth to date. Wound culture preliminarily positive for Enterobacter aerogenes and Proteus Mirabellas. Physical exam: Patient seen and fully evaluated at bedside this morning. He reports pain remains in his right foot remains unchanged to his right foot. Vital signs reviewed and stable. General: Nontoxic, no distress and appears stated age. Derm: Skin warm and dry, normal coloration for ethnicity. Patient with open wound between fourth and fifth digit of right foot with surrounding erythema, edema improved Head: Atraumatic, normocephalic and symmetric. Eyes: EOM's intact, no lid lag, and anicteric sclera Mouth: no lip lesions, mucus membranes moist Cardiovascular: regular rate and rhythm with normal S1S2, no murmur, positive posterior tibial pulses bilaterally, and cap refill < 2 seconds. Lungs: Respirations even, regular, and unlabored on room air. Lungs CTA bilaterally, no rhonchi, no rales, no wheezing, and no accessory muscle usage. Abdominal: soft, nontender to palpation, no guarding, no appreciable organomegaly Ext: ROM intact. No gross muscle atrophy, no edema, no contractures Neuro: Speech clear, face symmetrical and CN II-XII grossly intact with no noted focal neuro deficits Psych: Alert and oriented to person, place, time, and situation. Appropriate and pleasant affect. Assessment and Plan of Care: Infected diabetic wound right foot with surrounding cellulitis Poorly controlled type 2 diabetes mellitus with hyperglycemia, hemoglobin A1c 13.4%. Leukocytosis -Infectious disease following, discussed plan of care with Dr. Lundberg recommending continuation of cefepime 2 g every 8 hours pending final culture and sensitivity report. -Podiatry following, performed debridement of wound on. 04/14/2024 -Blood cultures showing no growth to date. Wound culture positive for Enterobacter aerogenes and Proteus Mirabellas and awaiting final sensitivity report. -Continue IV antibiotics with cefepime 2 g every 8 hours -ESR elevated at 52 and CRP of 1.6. -Symptomatic care and pain management with Tylenol 650 mg every 6 hours as needed for mild pain, [place] 5-325 mg tablets every 4 hours as needed for moderate pain, and morphine 4 mg IVP every 4 hours as needed for severe pain -Continue glycemic protocol with NovoLog sliding scale. -Hemoglobin A1c results 13.4%. Hypertension -Monitor vital signs and continue daily medication regimen with amlodipine 5 mg daily. Hypomagnesemia -Resolved. Magnesium 2.1 this morning. Nicotine dependence -Recommend smoking cessation. Continue nicotine patch 14 mg daily. Data and imaging reviewed: -Labs reviewed. Blood cultures showing no growth to date. Wound culture positive for Enterobacter aerogenes and Proteus Mirabellas and final sensitivity report pending. Morning labs reviewed. CBC showing leukocytosis with WBC count of 11.63 and normocytic anemia with hemoglobin of 12.6. BMP showing hyperglycemia with glucose of 172. Magnesium 2.0. Liver profile normal findings. Albumin slightly low at 3.6. -Vital signs reviewed. Blood pressure 155/75, heart rate 66, respiratory rate 17, temp 98.4 F, and SpO2 of 98% on room air. CODE STATUS: Full code DVT prophylaxis: Lovenox Discussed with: Patient, RN, and infectious disease physician Anticipated discharge date: Discharge is pending final culture and sensitivity report Anticipated discharge place: Home Patient was seen independently by Nurse Pracitioner. This document was prepared using [employer] dictation software. Please allow for errors in roads superintendent, while rare they do occur. Tru Osorio NP rendered care for this patient independently, reviewed the findings and plan as documented in the note above and agree with plan. I did not physically speak with or examine the patient on this date. Objective - Vital Signs Vital signs: Vital Signs Temp 98.4 F 04/15/24 06:50 Pulse 66 04/15/24 06:50 Resp 17 04/15/24 06:50 BP 155/75 04/15/24 06:50 Pulse Ox 98 04/15/24 06:50 FiO2 Intake & Output 04/14/24 04/15/24 04/15/24 18:59 06:59 18:59 Intake Total 100 Balance 100 Intake: Oral 100 Other: Voiding Method Toilet # Voids 2 - Labs CBC & Chem 7: 04/15/24 02:54 04/15/24 02:54 Labs: Abnormal Lab Results - Last 24 Hours (Table) 04/14/24 04/14/24 04/14/24 Range/Units 11:09 16:37 19:56 POC Glucose (mg/dL) 183 H 265 H 229 H (70-110) mg/dL 04/15/24 Range/Units 05:55 POC Glucose (mg/dL) 168 H (70-110) mg/dL Microbiology - Last 24 Hours (Table) 04/11/24 16:33 Gram Stain - Preliminary Foot - Right Wound Culture - Preliminary Enterobacter aerogenes Proteus mirabilis 04/10/24 21:09 Blood Culture - Preliminary Blood
[2024-04-15 20:49] LABS: Glucose,Whole Blood 277 mg/dL (70-110)
[2024-04-16 06:18] LABS: Glucose,Whole Blood 164 mg/dL (70-110)
[2024-04-16 09:28] LABS: HCT 38.4 % (39.6-50.0); HGB 12.5 g/dL (13.0-17.0); MCH 27.4 pg (27.0-32.0); MCHC 32.6 g/dL (32.0-37.0); Mean Platelet Volume 11.4 FL (9.5-12.2); NRBC Per 100 WBC 0 X 10*3/uL (0.00-0.01); Platelet Count 244 X 10*3/uL (140-440); RBC 4.57 X 10*6/uL (4.40-5.60); RDW 12.7 % (11.5-14.5); WBC 10.91 X 10*3/uL (4.50-10.00)
[2024-04-16 10:05] LABS: BUN/Creat Ratio 23.29 Ratio (12.00-20.00); Blood Urea Nitrogen 16.3 mg/dL (9.0-27.0); Chloride 105 mmol/L (96-109); Glucose 152 mg/dL (70-110); Magnesium 1.8 mg/dL (1.5-2.4); Potassium 4.2 mmol/L (3.5-5.5); Sodium 138 mmol/L (135-145)
[2024-04-16 10:06] LABS: ALT 27 U/L (10-49); AST 21 U/L (14-35); Albumin 3.6 g/dL (3.8-4.9); Albumin/Globulin Ratio 1.24 Ratio (1.60-3.17); Alkaline Phosphatase 94 U/L (41-126); Calcium 8.7 mg/dL (8.7-10.3); Carbon Dioxide 23.1 mmol/L (21.6-31.8); Globulin 2.9 g/dL (1.6-3.3); Total Bilirubin 0.3 mg/dL (0.3-1.2); Total Protein 6.5 g/dL (6.2-8.2)
[2024-04-16 11:37] LABS: Glucose,Whole Blood 197 mg/dL (70-110)
--- NOTE | 2024-04-16 13:44 | P.PN ---
Subjective Progress Note Date: 04/16/24 Principal diagnosis: Reason for follow-up is right diabetic foot ulcer and cellulitis Patient is a 68-year-old male with a past medical history significant for diabetes mellitus and hypertension current everyday smoker presenting to the hospital for evaluation of right foot pain swelling and redness, patient be diagnosed with right diabetic foot ulcer and cellulitis prompted this consultation. On today's evaluation that is 04/16/2024, Patient is afebrile patient is currently on room air and denies having any shortness of breath, the patient denies any chest pain or cough, the patient denies any nausea vomiting did not have any abdominal pain and no diarrhea and denies any worsening pain to the right foot area. The patient white count is 10.91 creatinine 0.7 sensitivity on Enterobacter could not be done as per discussion with E TAILER for admitting team Objective - Vital Signs Vital signs: Vital Signs Temp 99.8 F H 04/16/24 00:51 Pulse 72 04/16/24 00:51 Resp 16 04/16/24 00:51 BP 149/73 04/16/24 00:51 Pulse Ox 99 04/16/24 00:51 FiO2 Intake & Output 04/15/24 04/16/24 04/16/24 18:59 06:59 18:59 Other: Voiding Method Toilet # Voids 3 3 - Exam GENERAL DESCRIPTION: An elderly male lying in bed in no distress RESPIRATORY SYSTEM: Unlabored breathing , decreased breath sounds at bases HEART: S1 S2 regular rate and rhythm , ABDOMEN: Soft , no tenderness EXTREMITIES: Right foot dressed - Labs CBC & Chem 7: 04/16/24 04:15 04/16/24 04:15 Labs: Abnormal Lab Results - Last 24 Hours (Table) 04/15/24 04/15/24 04/15/24 Range/Units 02:54 02:54 11:51 WBC 11.63 H (4.50-10.00) X 10*3/uL Hgb 12.6 L (13.0-17.0) g/dL Hct 39.1 L (39.6-50.0) % MCH 26.9 L (27.0-32.0) pg BUN/Creatinine Ratio 31.43 H (12.00-20.00) Ratio Glucose 172 H (70-110) mg/dL POC Glucose (mg/dL) 267 H (70-110) mg/dL Albumin 3.6 L (3.8-4.9) g/dL Albumin/Globulin Ratio 1.33 L (1.60-3.17) Ratio 04/15/24 04/15/24 04/16/24 Range/Units 16:48 20:48 06:17 WBC (4.50-10.00) X 10*3/uL Hgb (13.0-17.0) g/dL Hct (39.6-50.0) % MCH (27.0-32.0) pg BUN/Creatinine Ratio (12.00-20.00) Ratio Glucose (70-110) mg/dL POC Glucose (mg/dL) 198 H 277 H 164 H (70-110) mg/dL Albumin (3.8-4.9) g/dL Albumin/Globulin Ratio (1.60-3.17) Ratio Microbiology - Last 24 Hours (Table) 04/10/24 21:09 Blood Culture - Final Blood Assessment and Plan (1) Diabetic foot infection Current Visit: Yes Status: Acute Code(s): E11.628 - TYPE 2 DIABETES MELLITUS WITH OTHER SKIN COMPLICATIONS; L08.9 - LOCAL INFECTION OF THE SKIN AND SUBCUTANEOUS TISSUE, UNSP SNOMED Code(s): 784602947 (2) Cellulitis of right foot Current Visit: Yes Status: Acute Code(s): L03.115 - CELLULITIS OF RIGHT LOWER LIMB SNOMED Code(s): 63307949428803824 (3) Diabetic foot ulcer Current Visit: Yes Status: Acute Code(s): E11.621 - TYPE 2 DIABETES MELLITUS WITH FOOT ULCER; L97.509 - NON-PRESSURE CHRONIC ULCER OTH PRT UNSP FOOT W UNSP SEVERITY SNOMED Code(s): 135219921 Plan: 1patient was in the hospital increasing pain swelling redness to the right foot with evidence of cellulitis source is likely wound between the right fourth and fifth toe and no need to cover for the polymicrobial joy associated with diabetic foot infection. 2patient white count is almost normalized sensitivity on Enterobacter could not be completed because of swarming effect from Proteus as reported by the micro lab discussed with the E TAILER for admitting team for 10-day course of oral Augmentin and Cipro and a close outpatient follow-up patient advised if any worsening swelling redness pain or develops any fever need to come back to the hospital Dictation was produced using [employer] dictation software. please excuse any grammatical, word or spelling errors. Time with Patient: Less than 30
[2024-04-16 13:59] VITALS: BP 153/75; PULSE 91; RESP 18; TEMP 98.8
--- NOTE | 2024-04-16 18:26 | P.DS ---
Providers Date of admission: 04/12/24 07:59 Expected date of discharge: 04/16/24 Attending physician: Teresa Powell MD Consults: 04/11/24 06:19 Consult Physician Routine Consulting Provider: Cruz Doll Consult Reason/Comments: diabetic foot ulcer Do you want consulting provider notified?: Yes Consult Physician Routine Consulting Provider: Sandra Lundberg Consult Reason/Comments: cellulitis Do you want consulting provider notified?: Yes Primary care physician: Stated None Hospital Course: Discharge Diagnosis: Infected diabetic wound right foot with surrounding cellulitis Poorly controlled type 2 diabetes mellitus with hyperglycemia, hemoglobin A1c 13.4%. Leukocytosis Hypertension Hypomagnesemia Nicotine dependence Hospital course: Patient is a very pleasant 68-year-old male with a past medical history of sac-yypazvv-yudicwljz diabetes mellitus, and nicotine dependence. He presented to the emergency department on 04/10/2024 secondary to evaluation of right foot pain and infection. Upon arrival to our facility, patient underwent evaluation in the emergency department. Vital signs upon arrival show blood pressure 171/8 3, heart rate 82, respiratory rate 16, temp 98.8 F, and SpO2 of 97% on room air. X-ray right foot completed negative for acute osseous abnormality. Labs completed and reviewed. CBC showing leukocytosis with WBC count of 11.1. BMP showing hyperglycemia with glucose of 362. Liver profile unremarkable. Patient started on broad-spectrum antibiotics and admitted under our services with consult to infectious disease for infected diabetic wound. Blood cultures showing no growth to date. Wound culture positive for Enterobacter aerogenes and Proteus Mirabellas. Podiatry evaluated and performed debridement of wound on. 04/14/2024. Hemoglobin A1c resulted at 13.4%. Patient is medically optimized for discharge at this time and per recommendations of infectious disease patient discharged home on Augmentin 875/125 mg tablets every 12 hours x 10 days and ciprofloxacin 500 mg every 12 hours x 10 days. Patient to follow-up outpatient with PCP in 1 to 2 days and with manager customer service in 1 to 2 weeks. Patient was started on Levemir 15 units daily for elevated blood glucose levels. Patient instructed he will need to monitor his blood glucose levels 3 times daily and document these findings and a daily log to bring with him to his follow-up appointment with PCP. Patient also started on amlodipine 5 mg daily for hypertension. Patient instructed to take medications as prescribed and was educated on monitoring for signs/symptoms of hypoglycemia with newly being placed on insulin. Patient also strongly encouraged to stop smoking. Diabetic supplies for blood glucose monitoring were provided prior to discharge. Physical exam: Vital signs reviewed and stable. General: Nontoxic, no distress and appears stated age. Derm: Skin warm and dry, normal coloration for ethnicity. Patient with open wound between fourth and fifth digit of right foot with surrounding erythema, edema improved Head: Atraumatic, normocephalic and symmetric. Eyes: EOM's intact, no lid lag, and anicteric sclera Mouth: no lip lesions, mucus membranes moist Cardiovascular: regular rate and rhythm with normal S1S2, no murmur, positive posterior tibial pulses bilaterally, and cap refill < 2 seconds. Lungs: Respirations even, regular, and unlabored on room air. Lungs CTA bilaterally, no rhonchi, no rales, no wheezing, and no accessory muscle usage. Abdominal: soft, nontender to palpation, no guarding, no appreciable organomegaly Ext: ROM intact. No gross muscle atrophy, no edema, no contractures Neuro: Speech clear, face symmetrical and CN II-XII grossly intact with no noted focal neuro deficits Psych: Alert and oriented to person, place, time, and situation. Appropriate and pleasant affect. A total of 34 minutes of time were spent preparing this complex discharge summary. Pt was discharged on 04/16/2024 at 1:32 PM. Patient was seen independently by Nurse Practitioner. This document was prepared using [employer] dictation software. Please allow for errors in student financial aid manager while rare they do occur. Tru Osorio NP rendered care for this patient independently, reviewed the findings and plan as documented in the note above. I did not physically speak with or examine the patient on this date. Patient Condition at Discharge: Stable Plan - Discharge Summary Discharge Rx Participant: No New Discharge Prescriptions: New Amoxic-Pot Clav 875-125Mg [Augmentin 875-125] 1 tab PO Q12HR 10 Days #20 tab Ciprofloxacin HCl [Cipro] 500 mg PO Q12HR 10 Days #20 tab Insulin Detemir [Levemir Flexpen] 15 units SQ DAILY 30 Days #1 pen amLODIPine [Norvasc] 5 mg PO DAILY 30 Days #30 tab Nicotine 14Mg/24Hr Patch [Habitrol] 1 patch TRANSDERM DAILY 30 Days #30 patch Discharge Medication List Amoxic-Pot Clav 875-125Mg [Augmentin 875-125] 1 tab PO Q12HR 10 Days #20 tab 04/16/24 [Rx] Ciprofloxacin HCl [Cipro] 500 mg PO Q12HR 10 Days #20 tab 04/16/24 [Rx] Insulin Detemir [Levemir Flexpen] 15 units SQ DAILY 30 Days #1 pen 04/16/24 [Rx] Nicotine 14Mg/24Hr Patch [Habitrol] 1 patch TRANSDERM DAILY 30 Days #30 patch 04/16/24 [Rx] amLODIPine [Norvasc] 5 mg PO DAILY 30 Days #30 tab 04/16/24 [Rx] Follow up Appointment(s)/Referral(s): Cruz Doll DPM [STAFF PHYSICIAN] - 1 Week [facility] [NON-STAFF] - 1 Week [facility] [NON-STAFF] - 1-2 Days (CALL OFFICE FIRST THING TOMORROW MORNING TO SCHEDULE FIRST AVAILABLE APPOINTMENT, LET THEM KNOW YOU ARE A NEWLY DIAGNOSED INSULIN DEPENDENT DIABETIC AND UNDERWENT HOSPITALIZATION FOR INFECTED DIABETIC WOUND AND HAD DEBRIDEMENT. ) Patient Instructions/Handouts: Insulin Detemir (By injection), Foot Care for People with Diabetes (DC), Type 2 Diabetes in Adults: New Diagnosis (DC), Diabetic Foot Ulcers (DC), Hypertension (DC) Activity/Diet/Wound Care/Special Instructions: Activity: As tolerated. Take breaks as needed. Continue to use crutches weightbearing to right heel only until follow up with Dr. Doll and further instructed Diet: Heart healthy and carb consistent diet. Special Instructions: Take all of your medications as directed and remember to keep all of your doctor's appointments and follow-up as needed. Remember to check your blood sugar levels 3 x daily and document results in a daily log to bring with you to your next PCP appointment as Levemir dosage may need to be increased/decreased pending these results. Monitor for signs/symptoms of hypoglycemia discussed. Thank you for allowing us to participate in your care, it was truly a pleasure having you for our patient!!! Discharge Disposition: HOME WITH HOME HEALTH SERVICES
--- NOTE | 2024-04-18 11:01 | CDI ---
Documentation Clarification Form Date: 04/18/2024 10:53:17 AM From: Emani Mendez Phone: Admit Date: 04/12/2024 07:59:00 AM Patient Name: Smith Hays Visit Number: [id number] Discharge Date: 04/16/2024 03:39:00 PM ATTENTION: The Clinical Documentation Specialists (CDI) and [facility] [employer] Coding Staff appreciate your assistance in clarifying documentation. Please respond to the clarification below the line at the bottom and electronically sign. The CDI & [employer] [facility] [employer] [facility] [employer] Coding staff will review the response and follow-up if needed. Please note: Queries are made part of the Legal Health Record. If you have any questions, please contact the author of this message via ITS. Doctor/Provider: Cruz Lua debridement is documented on 04/14/2024. Unfortunately, some required elements have not been documented. Additional clarification regarding the procedure is requested. History/Risk Factors: Patient is a 68-year-old male with past medical history significant for vug-hebsdmq-kzeihczoi diabetesmellitus presenting to the emergency department today for right footerythemaandwoundbetween his fourth and fifth toes, past medical history significant for diabetes mellitusandhypertensioncurrent every day smoker Clinical Indicators: Using a sterile surgical 15 blade weremoveddevitalizednecrotictissue marginally and centrally from theinfectedulcersurgically in order to restore good granular bed throughout. Afterdebridementwe lavage the area copiously with sterile saline in order toremoveanynecroticparticulate matter the preoperativemeasurementsof thisulcerationwas 2.5 cm x 4.0 cm x 0.3 cm postoperatively 2.5 cm x 4.0 cm x 0.3 cm. Afterdebridementthewoundwas infectedand there isrestoration ofgranulation tissuethroughout thewound. Patientbleedingwas less than 3 mL ofblood lossthroughout the procedure. Afterdebridementthewoundwas lavage with sterile saline and a dry sterile dressing was appliedwith medical honey. Patient was stable and will follow. Treatment: antibiotics , debridement Please clarify the procedure performed and the depth of debridement [ x] Excisional debridement (the removal of necrotic, devitalized tissue or slough by means of cutting away of tissue) Instrument: __see above Nature of the tissue removed __see above_necrotic subcutanous____ Appearance of the wound __see above Depth of debridement __see aboe [ ] Non-excisional debridement (the removal of necrotic, devitalized tissue or slough by means of flushing, brushing, or washing. (Irrigation) Instrument: Nature of the tissue removed Appearance of the wound Depth of debridement [ ] Other; please specify DrRanjan Five elements required for accurate and compliant documentation of a debridement: -Technique used (e.g., excisional, excised, cutting, brushing, jet lavage etc.) -Instrument(s) used (e.g., scalpel, curette, etc.) -Nature of the tissue removed (e.g., necrotic, devitalized tissues, non-viable tissue, etc.) -Appearance and size of the wound (e.g., down to fresh bleeding tissue, 7cm x 10cm, etc.) -Depth of the debridement* (e.g., skin, subcutaneous tissue, fascia, muscle, bone, etc.) (Template Last Revised: October 2023) MTDD
== END 2024-04-16 15:39 | disposition home health service (06) | DRG 264 ==
LOC: EC 20:41 → 1SOBS 23:17 → OBSVTOIN 04-12 07:59 → 4SSUR 04-14 15:43
PROVIDERS: ADMIT Internal Medicine; ATTEND Internal Medicine
PROC: 0JBQ0ZZ Excision of Right Foot Subcutaneous Tissue and Fascia, Open Approach (ICD-10-PCS; principal; 2024-04-14)
DX: E11.52 Type 2 diabetes mellitus with diabetic peripheral angiopathy with gangrene (principal); I96 Gangrene, not elsewhere classified; E11.621 Type 2 diabetes mellitus with foot ulcer; I10 Essential (primary) hypertension; L03.115 Cellulitis of right lower limb; E11.628 Type 2 diabetes mellitus with other skin complications; E11.65 Type 2 diabetes mellitus with hyperglycemia; L97.512 Non-pressure chronic ulcer of other part of right foot with fat layer exposed; E83.42 Hypomagnesemia; F17.200 Nicotine dependence, unspecified, uncomplicated; Z79.84 Long term (current) use of oral hypoglycemic drugs
CPT/HCPCS: 36415; 80048; 80053; 80202; 83036; 83735; 84100; 85025; 85027; 85652; 86140; 87040; 87070; 87077; 87186; 87205; 96365; 96366; 96375; 99284